=== PATIENT | male | born 1975 | race Caucasian/White ===

== ENCOUNTER 2016-06-21 04:26 | Emergency (ER) | payer SELFPAY ==
[~2016-06-21] VITALS: Ht 172.7 cm; Wt 68.0 kg
[~2016-06-21 04:26] MED LIST: GABA600T PO; METH500T3 PO; OXYC-396 PO; TEMA30CA PO
[2016-06-21 04:29] VITALS: BP 123/82; PULSE 82; RESP 16; TEMP 97.5; O2SAT 98
--- NOTE | 2016-06-21 04:49 | PD ---
HPI Chief Complaint: Injury Time Seen by Provider: 04:46 Travel History International Travel<30 days: No Contact w/Intl Traveler<30days: No Traveled to known affect area: No History of Present Illness HPI 41-year-old white male presents to emergency department for evaluation of right knee pain after an injury last evening. He states that he accidentally walked into a trailer hitch with his right leg. He hyperextended his right knee. He states that he had mild discomfort initially. He had taken his 20 mg oxycodone and went to bed. He states he had woken up several hours later with severe pain in the right knee. He states that he is unable to bend and extend his leg at the knee due to pain. He denies any numbness or tingling. He states that he takes oxycodone 20 mg 3 times daily for chronic neck and back pain. PFSH Past Medical History Narrative Medical Anxiety, depression, history of IV drug abuse, chronic neck and back pain Arthritis: No Asthma: No Autoimmune Disease: No Blood Disorders: No Anxiety: Yes Depression: Yes Heart Rhythm Problems: No Cancer: No Cardiovascular Problems: Yes High Cholesterol: No Chemotherapy: No Chest Pain: Yes Congestive Heart Failure: No COPD: No Cerebrovascular Accident: No Diabetes: No Diminished Hearing: No Endocrine: No Gastrointestinal Disorders: No GERD: No Genitourinary: Yes Headaches: No Hepatitis: Yes (hep c) Hiatal Hernia: No Hypertension: Yes Immune Disorder: No Implanted Vascular Access Dvce: No Kidney Stones: Yes Musculoskeletal: Yes Neurologic: No Psychiatric: Yes Reproductive: No Respiratory: No Integumentary: Yes (cellulitis to Right arm) Immunizations Current: Yes Migraines: No Pneumonia: Yes Radiation Therapy: No Renal Failure: No Seizures: No Sleep Apnea: No Thyroid Disease: No Ulcer: No Tetanus Vaccination: < 5 Years Influenza Vaccination: No Past Surgical History Abdominal Surgery: No Cardiac Surgery: No Ear Surgery: No Endocrine Surgery: No Eye Surgery: No Genitourinary Surgery: No Gynecologic Surgery: No Insulin Pump: No Oral Surgery: No Pacemaker: No Thoracic Surgery: No Other Surgery: Yes (RIGHT HAND INFECTOIN LANCED. ) Social History Alcohol Use: Yes (SELDOM/OCCASIONALLY) Tobacco Use: Yes (1 PPD) Substance Use: Yes (IV drug use, Dilaudid) Allergies-Medications (Allergen,Severity, Reaction): Coded Allergies: *MDRO Multi-Drug Resistant Organism (Unverified Adverse Reaction, Unknown , 06/21/16) MRSA Wound 09/07/14, as well as in 2011 and 2006. Morphine (Unverified Adverse Reaction, Unknown, N/V, 06/21/16) Reported Meds & Prescriptions Reported Meds & Active Scripts Active Reported Oxycodone (Oxycodone HCl) 20 Mg Tab 20 Mg PO Q6H PRN Review of Systems Except as stated in HPI: all other systems reviewed are Neg Physical Exam Narrative GENERAL: This is a well-nourished, well-developed patient, in no apparent distress. SKIN: No rashes, ecchymoses or lesions. Warm and dry. HEAD: Atraumatic. Normocephalic. EYES: PERRL, EOMI, no discharge or injection. No scleral icterus. EARS: Clear NOSE: Nasal turbinates appear normal. THROAT: Mucosa pink and moist. Airway patent. NECK: Trachea midline. supple, moves head freely. LUNGS: Clear to auscultation. CV: Regular in rhythm. ABDOMEN: Soft nontender. EXT: No clubbing cyanosis or edema. Examination of the right lower extremity reveals no obvious joint effusion of the knee. He is able to extend the knee. He states that he has limited flexion due to pain. No medial lateral collateral ligament instability. Unable to assess anterior posterior cruciate due to patient compliance. No pain in the hip, ankle or foot. He has intact gross sensation. Data Data Last Documented VS Vital Signs Date Time Temp Pulse Resp B/P Pulse Ox O2 Delivery O2 Flow Rate FiO2 06/21/16 04:44 16 06/21/16 04:29 97.5 82 123/82 98 Room Air Orders Knee, Complete (4vws) (06/21/16 04:41) Ice/Cold Pack (06/21/16 04:41) Splint Or Brace Apply/Monitor (06/21/16 04:41) Crutches (06/21/16 04:41) Immobilizer Knee 20 Inch (06/21/16 ) Ketorolac Inj (Toradol Inj) (06/21/16 06:30) MDM Medical Decision Making Medical Screen Exam Complete: Yes Emergency Medical Condition: Yes Medical Record Reviewed: Yes Interpretation(s) Last 24 hours Impressions Knee X-Ray 06/21/16 9041 Signed Impressions: Service Date/Time: Tuesday, June 21, 2016 05:59 - CONCLUSION: Unremarkable examination of the right knee. Wild Adam MD Right knee: Negative for acute fracture. No joint effusion. Differential Diagnosis MDM: High Differential diagnoses: Fracture, sprain, strain, dislocation, contusion, neurovascular injury Narrative Course The patient's history and exam is inconsistent with a significant injury. The patient's complaint of pain is disproportionate to his history and clinical findings. The patient has a history of substance abuse per the medical record. He also states that he is prescribed oxycodone 20 mg 3 times daily. He stated that he had taken earlier before coming in. The patient will be given Toradol 60 mg IM and he will be given a knee immobilizer, crutches and ice pack. X-rays were negative for any acute findings. The patient now states that he is allergic to Toradol. He states that he is also allergic to morphine and that the only medicine that he can take her pain is Dilaudid. He is requesting a shot of Dilaudid. I explained to the patient that this type of injury does not require Dilaudid. This is treated with anti- inflammatory medications. The patient is given a copy of his x-ray report. The patient now claims that my exam has exacerbated his injury. He is alleging that I have hyperextended his leg. He is now threatening to bring on a lawsuit because he is not getting Dilaudid and that he alleges that I have intentionally injured him. He is threatening to call the hospital city administrator and report me. He also states that he is going to go directly to [facility]. He states that he's not getting treated properly. I explained to the patient that he is in pain management and that I cannot prescribe any additional narcotics. I have tried to explain to the patient that this type of knee injury does not require shots of Dilaudid and additional opiates on top of his 20 mg of oxycodone 3 times daily. I've tried to explain to him that it is up to his pain management doctor to delegate further pain control. I'm not disputing that the patient has had an injury but is request for narcotics is not indicated. This is right knee sprain Diagnosis Primary Impression: Right knee sprain Qualified Code: S83.91XA - Sprain of right knee, unspecified ligament, initial encounter Patient Instructions: General Instructions Additional Instructions: Rest. Elevation. Ice packs for the next 3 days. Knee immobilizer and crutches. No weight-bearing and then progress to weight-bearing as tolerated. Call your pain doctor for further pain control. 3 Advil every 6 hours. Follow-up with an orthopedist or your doctor in one week. Return to the ER if any problems Med/Other Pt SpecificInfo: No Meds Exist/No RX given Disposition: 01 DISCHARGE HOME Condition: Stable David Reece Jun 21, 2016 04:49
--- NOTE | 2016-06-21 06:16 | RADRPT ---
EXAM DATE/TIME: 06/21/2016 05:59 [facility] COMPARISON: No previous studies available for comparison. INDICATIONS : Right knee pain after hitting knee against trailer hitch. MEDICAL HISTORY : None. SURGICAL HISTORY : None. ENCOUNTER: Initial ACUITY: 1 day PAIN SCORE: 10/10 LOCATION: Right knee FINDINGS: Four view examination of the right knee demonstrates no evidence of fracture or dislocation. Bony mi neralization is normal. The articular surfaces are intact. The suprapatellar soft tissues have a no rmal configuration. CONCLUSION: Unremarkable examination of the right knee. Wild Adam MD on June 21, 2016 at 6:12 Board Certified Radiologist. This report was verified electronically.
[2016-06-21] MEDS ORDERED: KETOROLAC TROMETHAMINE 60 MG/2 ML (IM) VIAL IM ONE (06:30)
== END 2016-06-21 06:53 | disposition home or self-care (01) ==
LOC: NEPB 04:26
DX: S83.91XA Sprain of unspecified site of right knee, initial encounter (principal); W22.09XA Striking against other stationary object, initial encounter; I10 Essential (primary) hypertension
CPT/HCPCS: 73564; 99284; E0113; L1830

== ENCOUNTER 2016-12-11 15:41 | Emergency (ER) | payer SELFPAY ==
[~2016-12-11] VITALS: Ht 175.3 cm; Wt 75.0 kg
[~2016-12-11 15:41] MED LIST changes: -GABA600T PO; -METH500T3 PO; -TEMA30CA PO
[2016-12-11 15:43] VITALS: BP 139/84; PULSE 94; RESP 20; TEMP 97.9; O2SAT 98
--- NOTE | 2016-12-11 15:48 | PD ---
Physical Exam Time Seen by Provider: 15:46 Narrative 41 y/o male with swelling/redness dorsal left hand which he reports was from a palm frond poking him yesterday. he endorses a hx of IDVU over one year ago. Vital signs reviewed. Seen at triage desk. Awaiting bed placement. Data Data Last Documented VS Vital Signs Date Time Temp Pulse Resp B/P Pulse Ox O2 Delivery O2 Flow Rate FiO2 12/11/16 15:43 97.9 94 20 139/84 98 Room Air [facility] Medical Record Reviewed: Yes Supervised Visit with SHAHRIAR: Lm Mejias Dec 11, 2016 15:48
--- NOTE | 2016-12-11 17:52 | PD ---
HPI Chief Complaint: Skin Problem Time Seen by Provider: 17:20 Travel History International Travel<30 days: No Contact w/Intl Traveler<30days: No Traveled to known affect area: No History of Present Illness HPI 41 y/o male with swelling/redness dorsal left hand which he reports was from a palm frond poking him yesterday. He reports the puncture injury was superficial and he does not believe there is something retained. He does report history of IV drug abuse but is adamant he hasn't injected into that hand or anywhere for over one year. He denies fever or chills. He reports pain localized to the hand. No alleviating factors. PFSH Past Medical History Arthritis: No Asthma: No Autoimmune Disease: No Blood Disorders: No Anxiety: Yes Depression: Yes Heart Rhythm Problems: No Cancer: No Cardiovascular Problems: Yes High Cholesterol: No Chemotherapy: No Chest Pain: Yes Congestive Heart Failure: No COPD: No Cerebrovascular Accident: No Diabetes: No Diminished Hearing: No Endocrine: No Gastrointestinal Disorders: No GERD: No Genitourinary: Yes Headaches: No Hepatitis: Yes (hep c) Hiatal Hernia: No Hypertension: Yes Immune Disorder: No Implanted Vascular Access Dvce: No Kidney Stones: Yes Musculoskeletal: Yes Neurologic: No Psychiatric: Yes Reproductive: No Respiratory: No Integumentary: Yes (cellulitis to Right arm) Immunizations Current: Yes Migraines: No Pneumonia: Yes Radiation Therapy: No Renal Failure: No Seizures: No Sleep Apnea: No Thyroid Disease: No Ulcer: No Past Surgical History Abdominal Surgery: No Cardiac Surgery: No Ear Surgery: No Endocrine Surgery: No Eye Surgery: No Genitourinary Surgery: No Gynecologic Surgery: No Insulin Pump: No Oral Surgery: No Pacemaker: No Thoracic Surgery: No Other Surgery: Yes (RIGHT HAND INFECTOIN LANCED. ) Social History Alcohol Use: Yes (SELDOM/OCCASIONALLY) Tobacco Use: Yes (1 PPD) Substance Use: Yes (IV drug use, Dilaudid) Allergies-Medications (Allergen,Severity, Reaction): Coded Allergies: *MDRO Multi-Drug Resistant Organism (Unverified Adverse Reaction, Unknown , 12/11/16) MRSA Wound 09/07/14, as well as in 2011 and 2006. Morphine (Unverified Adverse Reaction, Unknown, N/V, 12/11/16) Reported Meds & Prescriptions Reported Meds & Active Scripts Active Reported Oxycodone (Oxycodone HCl) 20 Mg Tab 20 Mg PO Q6H PRN Review of Systems Except as stated in HPI: all other systems reviewed are Neg General / Constitutional: No: Fever Eyes: No: Visual changes HENT: No: Headaches Cardiovascular: No: Chest Pain or Discomfort Respiratory: No: Shortness of Breath Gastrointestinal: No: Abdominal Pain Genitourinary: No: Dysuria Musculoskeletal: Positive: Other (left hand pain and swelling) Physical Exam Narrative GENERAL: Alert, well-appearing male. No acute distress SKIN: Focused skin assessment warm/dry. Mild erythema and swelling to the left hand dorsal aspect this does not extend into the fingers or wrist. HEAD: Atraumatic. Normocephalic. EYES: Pupils equal and round. No scleral icterus. No injection or drainage. ENT: No nasal bleeding or discharge. Mucous membranes pink and moist. NECK: Trachea midline. No JVD. CARDIOVASCULAR: Regular rate and rhythm. No murmur appreciated. RESPIRATORY: No accessory muscle use. Clear to auscultation. Breath sounds equal bilaterally. GASTROINTESTINAL: Abdomen soft, non-tender, nondistended. Hepatic and splenic margins not palpable. MUSCULOSKELETAL: No obvious deformities. No clubbing. No cyanosis. No edema. Mild erythema and swelling to the left hand dorsal aspect this does not extend into the fingers or wrist. No obvious puncture site. No induration or fluctuance. NEUROLOGICAL: Awake and alert. No obvious cranial nerve deficits. Motor grossly within normal limits. Normal speech. PSYCHIATRIC: Appropriate mood and affect; insight and judgment normal. Data Data Last Documented VS Vital Signs Date Time Temp Pulse Resp B/P Pulse Ox O2 Delivery O2 Flow Rate FiO2 12/11/16 15:43 97.9 94 20 139/84 98 Room Air [facility] Medical Decision Making Medical Screen Exam Complete: Yes Emergency Medical Condition: Yes Differential Diagnosis Cellulitis, abscess, retained foreign body Narrative Course 41-year-old male presents emergency department for evaluation of left hand redness and swelling 1 day. Patient reports he was poked in the hand by a palm frond. He does not believe there is a retained foreign body. He refuses x -ray. Risks of retained foreign body discussed with patient. He verbalizes understanding. Patient is nontoxic-appearing. He is afebrile and non- tachycardic. The cellulitis appears to be localized to the dorsal aspect of the hand it does not extend into the fingers or wrist. I think it's reasonable to attempt oral antibiotics and have close follow-up. Patient agrees to this plan. He will be put on Bactrim and Keflex which are free of [employer]. Patient was instructed to follow-up with his primary care doctor in 1-2 days or return to emergency department for recheck. He agrees. Diagnosis Primary Impression: Cellulitis of left hand Referrals: Primary Care Physician Additional Instructions: Take the antibiotics as prescribed. Follow-up with her primary doctor in 1-2 days for recheck. Return to the emergency department if he developed increasing pain, swelling, redness of the left hand. Scripts Sulfamethoxazole-Trimethoprim (Bactrim DS)800-160 Mg Tab1 Tab PO BID #20 TAB Prov:Carmen Perez 12/11/16 Cephalexin (Keflex)500 Mg [id number] Mg PO Q6H #28 CAP Prov:Carmen Perez 12/11/16 Disposition: 01 DISCHARGE HOME Condition: Stable Carmen Perez Dec 11, 2016 17:52
[2016-12-11] MEDS ORDERED: CEPH-460 PO (17:57)
[2016-12-11] MEDS ORDERED: BACT800T5 PO (17:57)
== END 2016-12-11 19:04 | disposition home or self-care (01) ==
LOC: NEPK 15:41
DX: L03.114 Cellulitis of left upper limb (principal); I10 Essential (primary) hypertension; F41.9 Anxiety disorder, unspecified; F32.9 Major depressive disorder, single episode, unspecified; B19.20 Unspecified viral hepatitis C without hepatic coma; F17.210 Nicotine dependence, cigarettes, uncomplicated; Z79.899 Other long term (current) drug therapy
CPT/HCPCS: 99284

== ENCOUNTER 2017-02-01 14:34 | Emergency (ER) | payer SELFPAY ==
[~2017-02-01] VITALS: Ht 172.7 cm; Wt 64.2 kg
[~2017-02-01 14:34] MED LIST changes: +BACT800T5 PO; +CEPH-460 PO
[2017-02-01 14:40] VITALS: BP 123/71; PULSE 89; RESP 18; TEMP 98.4
[2017-02-01] MEDS ORDERED: GABA600T PO (14:59)
--- NOTE | 2017-02-01 15:12 | PD ---
HPI Chief Complaint: Skin Problem Time Seen by Provider: 14:55 Travel History International Travel<30 days: No Contact w/Intl Traveler<30days: No Traveled to known affect area: No History of Present Illness HPI 41-year-old male presents to the emergency room for evaluation of right hand pain, redness, and swelling for the past 3 days. Patient states he was changing a lawnmower blade cut his hand in several places. States he woke up the following morning with increasing redness and pain in his right hand. He has not done anything for his symptoms. Denies fever, chills, nausea, and vomiting. Patient adamantly denies IV drug use but electronic medical records indicate otherwise. He has history of MRSA. Please see is up-to-date on tetanus. PFSH Past Medical History Arthritis: No Asthma: No Autoimmune Disease: No Blood Disorders: No Anxiety: Yes Depression: Yes Heart Rhythm Problems: No Cancer: No Cardiovascular Problems: Yes High Cholesterol: No Chemotherapy: No Chest Pain: Yes Congestive Heart Failure: No COPD: No Cerebrovascular Accident: No Diabetes: No Diminished Hearing: No Endocrine: No Gastrointestinal Disorders: No GERD: No Genitourinary: Yes Headaches: No Hepatitis: Yes (hep c) Hiatal Hernia: No Hypertension: Yes Immune Disorder: No Implanted Vascular Access Dvce: No Kidney Stones: Yes Musculoskeletal: Yes Neurologic: No Psychiatric: Yes Reproductive: No Respiratory: No Integumentary: Yes (cellulitis to Right arm) Immunizations Current: Yes Migraines: No Pneumonia: Yes Radiation Therapy: No Renal Failure: No Seizures: No Sleep Apnea: No Thyroid Disease: No Ulcer: No Past Surgical History Abdominal Surgery: No Cardiac Surgery: No Ear Surgery: No Endocrine Surgery: No Eye Surgery: No Genitourinary Surgery: No Gynecologic Surgery: No Insulin Pump: No Oral Surgery: No Pacemaker: No Thoracic Surgery: No Other Surgery: Yes (RIGHT HAND INFECTOIN LANCED. ) Social History Alcohol Use: Yes (SELDOM/OCCASIONALLY) Tobacco Use: Yes (1 PPD) Substance Use: Yes (IV drug use, Dilaudid) Allergies-Medications (Allergen,Severity, Reaction): Coded Allergies: *MDRO Multi-Drug Resistant Organism (Unverified Adverse Reaction, Unknown , 02/01/17) MRSA Wound 09/07/14, as well as in 2011 and 2006. morphine (Unverified Adverse Reaction, Unknown, N/V, 02/01/17) Reported Meds & Prescriptions Reported Meds & Active Scripts Active Reported Gabapentin 600 Mg Tab 600 Mg PO BID Review of Systems Except as stated in HPI: all other systems reviewed are Neg Physical Exam Narrative GENERAL: Well-nourished, well-developed male in no acute distress. Afebrile. Ambulatory. SKIN: Focused skin assessment warm/dry. There is an indurated area in the right dorsal hand over the fifth metacarpal which measures about 4 cm in diameter. It is fluctuant but there is no pointing or drainage. There is a zone of inflammation around it but no lymphangitis. HEAD: Normocephalic. EYES: No scleral icterus. No injection or drainage. NECK: Supple, trachea midline. No JVD or lymphadenopathy. CARDIOVASCULAR: Regular rate and rhythm without murmurs, gallops, or rubs. RESPIRATORY: Breath sounds equal bilaterally. No accessory muscle use. MUSCULOSKELETAL: No cyanosis. Moderate to severe edema of the right hand especially over the fifth metacarpal. Full range of motion. Less than 2 second capillary refill distally. Moderate tenderness to palpation over the area of abscess. Data Data Last Documented VS Vital Signs Date Time Temp Pulse Resp B/P (MAP) Pulse Ox O2 Delivery O2 Flow Rate FiO2 02/01/17 14:40 98.4 89 18 123/71 (88) Orders Orders Ibuprofen (Motrin) (02/01/17 15:15) Lidocaine 1% Inj (50 Ml) (Xylocaine 1% I (02/01/17 15:15) Wound Culture And Gram Stain (02/01/17 15:02) Acetamin-Hydrocod 325-5 Mg ([place] 5-325 (02/01/17 15:15) MDM Medical Decision Making Medical Screen Exam Complete: Yes Emergency Medical Condition: Yes Medical Record Reviewed: Yes Differential Diagnosis IV drug abuse, abscess, cellulitis Narrative Course 41-year-old male presents to the emergency room for evaluation of an abscess to his right hand that started 4 days ago. Abscess is located in the right dorsal hand over the fifth metacarpal bone. It is extremely tender to palpation and edematous. No lymphangitis. There is moderate fluctuance. Patient adamantly denies IV drug abuse but it is in his history. There are no surrounding wounds near the abscess to account for cellulitis. Patient persistently asks for Percocet while in the emergency room. He was offered ibuprofen and declines stating ibuprofen would not treat his pain. Patient became cantankerous when he was denied pain medication. He stated he would be leaving and going to another hospital because we were not treating his pain. Pain medication was ordered but patient left prior to administration. Patient left AGAINST MEDICAL ADVICE. AMA: The risks of leaving against medical advice without further evaluation treatment were discussed with the patient. These risks include cardiac dysfunction, cardiac dysrhythmia, possible heart attack, possible stroke or . The patient indicated understanding of these risks and appeared to have the capacity to make this decision. Diagnosis Primary Impression: Abscess Referrals: Primary Care Physician Med/Other Pt SpecificInfo: Prescription(s) given Disposition: 07 AGAINST MEDICAL ADVICE Condition: Stable Dee Palomino Feb 01, 2017 15:12
[2017-02-01] MEDS ORDERED: IBUPROFEN 800 MG TAB PO ONE (15:15)
[2017-02-01] MEDS ORDERED: LIDOCAINE HCL 1% 50 ML VIAL INFIL ONE (15:15)
[2017-02-01] MEDS ORDERED: ACETAMINOPHEN/HYDROcodone 325 MG/5 MG TAB PO ONE (15:15)
== END 2017-02-01 15:30 | disposition left against medical advice (07) ==
LOC: PHEFT 14:34
DX: L02.511 Cutaneous abscess of right hand (principal)
CPT/HCPCS: 99281

== ENCOUNTER 2017-02-20 07:44 | Emergency (ER) | payer SELFPAY ==
[~2017-02-20] VITALS: Ht 172.7 cm; Wt 75.0 kg
[~2017-02-20 07:44] MED LIST changes: -BACT800T5 PO; -CEPH-460 PO; +GABA600T PO; -OXYC-396 PO
[2017-02-20 07:52] VITALS: BP 144/91; PULSE 83; RESP 16; TEMP 98.6; O2SAT 99
[2017-02-20 08:05] VITALS: BP 140/81; PULSE 74; RESP 24; O2SAT 98
[2017-02-20] MEDS ORDERED: VANCOMYCIN INJ 1,000 MG in SODIUM CHLOR 0.9% 250 ML INJ 250 ML IV STA (08:16)
[2017-02-20] MEDS ORDERED: PIPERACIL-TAZO 4.5 GM PREMIX 100 ML IV STA (08:16)
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
[2017-02-20] MEDS ORDERED: KETOROLAC TROMETHAMINE 30 MG/ML (IVP) VIAL IV PUSH ONE (08:30)
[2017-02-20 08:45] LABS: AUTOMATED NEUTROPHIL # 5.8 TH/MM3 (1.8-7.7); BASOPHIL % 0.4 % (0.0-2.0); EOSINOPHIL # 0.1 TH/MM3 (0-0.4); EOSINOPHIL % 0.9 % (0.0-4.0); HEMATOCRIT 43.4 % (39.0-51.0); HEMO FLAGS DIFF FINAL; LYMPH % 26.2 % (9.0-44.0); LYMPHOCYTE # 2.7 TH/MM3 (1.0-4.8); MEAN CELL VOLUME 91.2 FL (80.0-100.0); MONO % 16.1 % (0.0-8.0); NEUT % 56.4 % (16.0-70.0); PLATELET COUNT 189 TH/MM3 (150-450); RED BLOOD COUNT 4.76 MIL/MM3 (4.50-5.90); RED CELL DISTRIBUTION WIDTH 14.7 % (11.6-17.2); WHITE BLOOD COUNT 10.3 TH/MM3 (4.0-11.0)
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
--- NOTE | 2017-02-20 09:09 | RADRPT ---
EXAM DATE/TIME: 02/20/2017 08:49 [facility] COMPARISON: CHEST SINGLE AP, September 05, 2014, 17:10. INDICATIONS : Cough. Patient also complains of left arm pain after being stuck by yard debris. MEDICAL HISTORY : Hypertension. Hepatitis C. SURGICAL HISTORY : None. ENCOUNTER: Initial ACUITY: 2 days PAIN SCORE: 6/10 LOCATION: Bilateral chest FINDINGS: A single view of the chest demonstrates the lungs to be symmetrically aerated without evidence of mas s, infiltrate or effusion. The cardiomediastinal contours are unremarkable. Osseous structures are intact. CONCLUSION: No acute disease. Oral Valenzuela MD on February 20, 2017 at 9:08 Board Certified Radiologist. This report was verified electronically.
[2017-02-20 09:13] LABS: ALT (GPT) 115 U/L (12-78)
[2017-02-20 09:14] LABS: ALKALINE PHOSPHATASE 123 U/L (45-117); TOTAL BILIRUBIN ADULT 0.6 MG/DL (0.2-1.0)
[2017-02-20 09:17] LABS: ANION GAP 5 MEQ/L (5-15); AST (GOT) 116 U/L (15-37); BICARBONATE 26.2 MEQ/L (21.0-32.0); BLOOD UREA NITROGEN 8 MG/DL (7-18); CHLORIDE 105 MEQ/L (98-107); GLOMERULAR FILTRATION RATE 100 ML/MIN (>89); POTASSIUM 4.3 MEQ/L (3.5-5.1); SODIUM (NA) 136 MEQ/L (136-145)
[2017-02-20] MEDS ORDERED: BACT800T5 PO (10:14)
[2017-02-20] MEDS ORDERED: CLIN1CAP6 PO (10:14)
[2017-02-21] MEDS ORDERED: OXYC-396 PO (08:01)
== END 2017-02-20 10:39 | disposition left against medical advice (07) ==
LOC: NEPC 07:44
DX: I82.612 Acute embolism and thrombosis of superficial veins of left upper extremity (principal); F41.9 Anxiety disorder, unspecified; F32.9 Major depressive disorder, single episode, unspecified; K75.9 Inflammatory liver disease, unspecified; I10 Essential (primary) hypertension; F17.200 Nicotine dependence, unspecified, uncomplicated; Z87.442 Personal history of urinary calculi; Z79.899 Other long term (current) drug therapy
CPT/HCPCS: 71010; 76882; 80053; 83605; 85025; 87040; 96365; 96375; 99285; J1885; J2543; J3370; J7050

== ENCOUNTER 2017-02-21 07:43 | Emergency (ER) | payer SELFPAY ==
[~2017-02-21] VITALS: Ht 175.3 cm; Wt 72.7 kg
[~2017-02-21 07:43] MED LIST changes: +BACT800T5 PO; +CLIN1CAP6 PO
[2017-02-21 07:45] VITALS: BP 142/86; PULSE 92; RESP 24; TEMP 97.7; O2SAT 98
[2017-02-21 07:55] VITALS: BP 131/81; PULSE 80; RESP 20; O2SAT 98
[2017-02-21] MEDS ORDERED: OXYC-396 PO (08:01)
[2017-02-21] MEDS ORDERED: DALBAVANCIN INJ 1,500 MG in DEXTROSE 5% IN WATE 500 ML INJ 500 ML IV STA ×2 (08:06)
--- NOTE | 2017-02-21 08:12 | PD ---
HPI Chief Complaint: Respiratory Symptoms Time Seen by Provider: 07:53 Travel History International Travel<30 days: No Contact w/Intl Traveler<30days: No Traveled to known affect area: No History of Present Illness HPI So 41-year-old man who presents to the emergency department complaining of chest pain and left arm swelling. States he feels the pain on the right long in the right side of his chest. Started this morning. He seen in the emergency department yesterday for pain and swelling of the left biceps was diagnosed as septic thrombophlebitis. Ultrasound that showed superficial clot. Denies any past medical history except for chronic opiate use for chronic back pain. 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 He had some subjective fevers and chills as well. History Past Medical History Narrative Medical Chronic back pain Tetanus Vaccination: > 5 Years Social History Alcohol Use: Yes (SELDOM/OCCASIONALLY) Tobacco Use: Yes (1 PPD) Allergies-Medications (Allergen,Severity, Reaction): Coded Allergies: *MDRO Multi-Drug Resistant Organism (Unverified Adverse Reaction, Unknown , 02/20/17) MRSA Wound 09/07/14, as well as in 2011 and 2006. morphine (Unverified Adverse Reaction, Unknown, N/V, 02/20/17) Reported Meds & Prescriptions Reported Meds & Active Scripts Active Bactrim DS (Sulfamethoxazole-Trimethoprim) 800-160 Mg Tab 1 Tab PO BID Reported Oxycodone (Oxycodone HCl) 20 Mg Tab 20 Mg PO Q6H PRN Gabapentin 600 Mg Tab 600 Mg PO BID Review of Systems Except as stated in HPI: all other systems reviewed are Neg Physical Exam Narrative GENERAL: Well-appearing 41 year-old woman, no acute distress. SKIN: Focused skin assessment warm/dry. HEAD: Atraumatic. Normocephalic. EYES: Pupils equal and round. No scleral icterus. No injection or drainage. ENT: No nasal bleeding or discharge. Mucous membranes pink and moist. NECK: Trachea midline. No JVD. CARDIOVASCULAR: Regular rate and rhythm. No murmur appreciated. RESPIRATORY: No accessory muscle use. Clear to auscultation. Breath sounds equal bilaterally. GASTROINTESTINAL: Abdomen soft, non-tender, nondistended. Hepatic and splenic margins not palpable. MUSCULOSKELETAL: No obvious deformities. Erythema and induration in the left anterior bicep. No obvious fluctuance. Some tenderness. NEUROLOGICAL: Awake and alert. No obvious cranial nerve deficits. Motor grossly within normal limits. Normal speech. Data Data Last Documented VS Vital Signs Date Time Temp Pulse Resp B/P (MAP) Pulse Ox O2 Delivery O2 Flow Rate FiO2 02/21/17 07:55 80 20 131/81 (98) 98 Room Air 02/21/17 07:45 97.7 Orders Orders Electrocardiogram (02/21/17 ) Complete Blood Count With Diff (02/21/17 08:04) Comprehensive Metabolic Panel (02/21/17 08:04) Iv Access Insert/Monitor (02/21/17 08:04) Ct Pulmonary Angiogram (02/21/17 ) Sodium Chlor 0.9% 1000 Ml Inj (Ns 1000 M (02/21/17 08:15) Case Management Consult (02/21/17 ) Asp:No Reaction To [place]/Vanc (Asp Crit (02/21/17 08:15) Asp: Does Not Meet Inpt Admit (Asp Crit: (02/21/17 08:15) Asp: Iv Antibiotics Admit Only (Asp Crit (02/21/17 08:15) Asp: Location Of [facility] Admin (Asp Crit: (02/21/17 08:15) [facility] [place] (02/21/17 08:15) [place]in Inj ([facility] Inj) (02/21/17 08:06) Iohexol 350 Inj (Omnipaque 350 Inj) (02/21/17 08:46) Labs Laboratory Tests Test 02/21/17 08:00 White Blood Count 9.3 TH/MM3 Red Blood Count 4.53 MIL/MM3 Hemoglobin 13.8 GM/DL Hematocrit 41.0 % Mean Corpuscular Volume 90.5 FL Mean Corpuscular Hemoglobin 30.5 PG Mean Corpuscular Hemoglobin Concent 33.7 % Red Cell Distribution Width 14.9 % Platelet Count 170 TH/MM3 Mean Platelet Volume 7.9 FL Neutrophils (%) (Auto) 64.6 % Lymphocytes (%) (Auto) 22.7 % Monocytes (%) (Auto) 11.2 % Eosinophils (%) (Auto) 1.2 % Basophils (%) (Auto) 0.3 % Neutrophils # (Auto) 6.0 TH/MM3 Lymphocytes # (Auto) 2.1 TH/MM3 Monocytes # (Auto) 1.0 TH/MM3 Eosinophils # (Auto) 0.1 TH/MM3 Basophils # (Auto) 0.0 TH/MM3 CBC Comment DIFF FINAL Differential Comment Blood Urea Nitrogen 7 MG/DL Creatinine 0.99 MG/DL Random Glucose 114 MG/DL Total Protein 8.1 GM/DL Albumin 3.1 GM/DL Calcium Level 8.2 MG/DL Alkaline Phosphatase 102 U/L Aspartate Amino Transf (AST/SGOT) 75 U/L Alanine Aminotransferase (ALT/SGPT) 90 U/L Total Bilirubin 0.5 MG/DL Sodium Level 134 MEQ/L Potassium Level 3.4 MEQ/L Chloride Level 102 MEQ/L Carbon Dioxide Level 25.0 MEQ/L Anion Gap 7 MEQ/L Estimat Glomerular Filtration Rate 84 ML/MIN [facility] Medical Decision Making Medical Screen Exam Complete: Yes Emergency Medical Condition: Yes Interpretation(s) My review of EKG: Normal sinus rhythm at a rate of 87, normal axis, normal intervals, no acute ischemia. LABS: CBC is unremarkable. BMP is overall unremarkable with mildly elevated AST and ALT CT pulmonary angiogram: No PE. Differential Diagnosis Infection, PE, bronchitis, other Narrative Course Medical decision making 41-year-old man with left arm soft tissue infection thrombophlebitis who presents with chest pain. This is likely from bronchitis. Concern for PE. We' ll check labs, CT, IV antibiotics. Patient appears high risk for medication noncompliance. He has filled the Bactrim but has not filled the clindamycin. They're planning on admitting him yesterday according to the patient. I think patient be good candidate for [facility]. Diagnosis Primary Impression: Cellulitis Additional Instructions: Continue to avoid IV drug use. Follow-up with her primary doctor not completely well in 3-4 days. Return to the emergency department for any new or worsening symptoms. You can stop the Bactrim and the clindamycin. Med/Other Pt SpecificInfo: Existing Med Changed Disposition: 01 DISCHARGE HOME Condition: Stable Antoni Pyle MD Feb 21, 2017 08:12
[2017-02-21] MEDS ORDERED: ASP: Only reason for admit - IV antibiotics OTHER ONE (08:15)
[2017-02-21] MEDS ORDERED: SODIUM CHLOR 0.9% 1000 ML INJ 1,000 ML IV ONE (08:15)
[2017-02-21] MEDS ORDERED: ASP: Location of Dalbavancin administration OTHER ONE (08:15)
[2017-02-21] MEDS ORDERED: ASP: No known hypersensitivity to Vanco, Telavancin, Dalbavancin OTHER ONE (08:15)
[2017-02-21] MEDS ORDERED: MISCELLANEOUS PHARMACY INFORMATION XX ONE (08:15)
[2017-02-21] MEDS ORDERED: ASP: Does not meet inpatient admission criteria OTHER ONE (08:15)
[2017-02-21 08:21] LABS: BASOPHIL % 0.3 % (0.0-2.0); EOSINOPHIL # 0.1 TH/MM3 (0-0.4); EOSINOPHIL % 1.2 % (0.0-4.0); HEMO FLAGS DIFF FINAL; LYMPH % 22.7 % (9.0-44.0); LYMPHOCYTE # 2.1 TH/MM3 (1.0-4.8); MEAN CELL VOLUME 90.5 FL (80.0-100.0); MEAN CORPUSCULAR HEMOGLOBIN 30.5 PG (27.0-34.0); MEAN CORPUSCULAR HGB CONC 33.7 % (32.0-36.0); MONO % 11.2 % (0.0-8.0); NEUT % 64.6 % (16.0-70.0); PLATELET COUNT 170 TH/MM3 (150-450); RED BLOOD COUNT 4.53 MIL/MM3 (4.50-5.90); RED CELL DISTRIBUTION WIDTH 14.9 % (11.6-17.2); WHITE BLOOD COUNT 9.3 TH/MM3 (4.0-11.0)
[2017-02-21] MEDS ORDERED: IOHEXOL 350 MG/ML 10 ML VIAL (for RAD DIAG) IVCONTRAST ONE (08:46)
[2017-02-21 08:59] LABS: ALKALINE PHOSPHATASE 102 U/L (45-117); ALT (GPT) 90 U/L (12-78); ANION GAP 7 MEQ/L (5-15); AST (GOT) 75 U/L (15-37); BLOOD UREA NITROGEN 7 MG/DL (7-18); CHLORIDE 102 MEQ/L (98-107); GLOMERULAR FILTRATION RATE 84 ML/MIN (>89); POTASSIUM 3.4 MEQ/L (3.5-5.1); SODIUM (NA) 134 MEQ/L (136-145); TOTAL BILIRUBIN ADULT 0.5 MG/DL (0.2-1.0)
--- NOTE | 2017-02-21 09:05 | RADRPT ---
EXAM DATE/TIME: 02/21/2017 08:33 [facility] COMPARISON: CHEST SINGLE AP, February 20, 2017, 8:49. INDICATIONS : Right lower chest pain with shortness of breath. IV CONTRAST: 60 cc Omnipaque 350 (iohexol) IV RADIATION DOSE: 10.92 CTDIvol (mGy) MEDICAL HISTORY : None SURGICAL HISTORY : None. ENCOUNTER: Initial ACUITY: 2 days PAIN SCALE: 5/10 LOCATION: Right chest TECHNIQUE: Volumetric scanning of the chest was performed using a pulmonary embolism protocol MIP images were re constructed. Using automated exposure control and adjustment of the mA and/or kV according to patien t size, radiation dose was kept as low as reasonably achievable to obtain optimal diagnostic quality images. DICOM format image data is available electronically for review and comparison. Follow-up recommendations for detected pulmonary nodules are based at a minimum on nodule size and pa tient risk factors according to Fleischner Society Guidelines. FINDINGS: PULMONARY ARTERIES: No filling defects are seen in the pulmonary arteries through the segmental level. LUNGS: Biapical emphysematous changes, right left. No confluent infiltrate. PLEURAE: There is no pleural thickening or pleural effusion. MEDIASTINUM: There is good visualization of the great vessels of the middle mediastinum. No evidence of mediastin al or hilar adenopathy/mass. Anatomic variant of the arch with the left vertebral emanated directly f rom the arch. MUSCULOSKELETAL: Within normal limits for patient age. MISCELLANEOUS: The visualized upper abdominal organs demonstrate no acute abnormality. Spleen is prominent measuring 14.4 cm in greatest AP dimension CONCLUSION: 1. Biapical emphysematous changes, right greater than left. 2. No confluent infiltrate or pulmonary embolus. 3. Splenomegaly. Mervin Herrera MD on February 21, 2017 at 9:00 Board Certified Radiologist. This report was verified electronically.
[2017-02-21 10:32] VITALS: BP 130/80
--- NOTE | 2017-02-21 20:40 | EKG ---
Date Performed: 02/21/2017 Time Performed: 08:00:58 PTAGE: 41 years EKG: Sinus rhythm POSSIBLE LEFT ATRIAL ENLARGEMENT BORDERLINE ECG PREVIOUS TRACING : 02/21/2017 08.00 Compared to prior tracing no significant change DOCTOR: Jovan Hilario Interpretating Date/Time 02/22/2017 09:25:21
== END 2017-02-21 11:14 | disposition home or self-care (01) ==
LOC: NEPE 07:43
DX: L03.90 Cellulitis, unspecified (principal); I80.8 Phlebitis and thrombophlebitis of other sites; M79.89 Other specified soft tissue disorders; F17.200 Nicotine dependence, unspecified, uncomplicated
CPT/HCPCS: 71275; 80053; 85025; 93005; 96361; 96365; 99285; J0875; J7030; J7060; Q9967

== ENCOUNTER 2017-06-11 08:18 | Emergency (ER) | payer OTHER ==
[~2017-06-11] VITALS: Ht 172.7 cm; Wt 70.0 kg
[~2017-06-11 08:18] MED LIST changes: -CLIN1CAP6 PO; +OXYC-396 PO
[2017-06-11 08:32] VITALS: BP 132/88; PULSE 88; RESP 16; TEMP 99.9; O2SAT 98
[2017-06-11 09:37] LABS: AUTOMATED NEUTROPHIL # 4.1 TH/MM3 (1.8-7.7); BASOPHIL % 0.3 % (0.0-2.0); EOSINOPHIL # 0.1 TH/MM3 (0-0.4); EOSINOPHIL % 1.2 % (0.0-4.0); HEMATOCRIT 41.1 % (39.0-51.0); HEMOGLOBIN 14.4 GM/DL (13.0-17.0); LYMPH % 35.6 % (9.0-44.0); MEAN CELL VOLUME 87.9 FL (80.0-100.0); MEAN CORPUSCULAR HEMOGLOBIN 30.8 PG (27.0-34.0); MEAN PLATELET VOLUME 8.1 FL (7.0-11.0); MONO % 14.9 % (0.0-8.0); MONOCYTE # 1.3 TH/MM3 (0-0.9); PLATELET COUNT 186 TH/MM3 (150-450); RED BLOOD COUNT 4.67 MIL/MM3 (4.50-5.90); RED CELL DISTRIBUTION WIDTH 14.3 % (11.6-17.2); WHITE BLOOD COUNT 8.5 TH/MM3 (4.0-11.0)
[2017-06-11 09:40] LABS: BILIRUBIN, URINE NEG (NEG); BLOOD, URINE NEG (NEG); GLUCOSE,URINE NEG (NEG); KETONE, URINE 40 mg/dL (NEG); NITRITE,URINE NEG (NEG); PH, URINE 6.5 (5.0-8.5); URINE COLOR YELLOW (YELLW/STRAW); URINE LEUKOCYTE ESTERASE NEG (NEG)
[2017-06-11 09:51] LABS: ALBUMIN 3.5 GM/DL (3.4-5.0); ALT (GPT) 100 U/L (12-78); AST (GOT) 155 U/L (15-37); BICARBONATE 24.7 MEQ/L (21.0-32.0); BLOOD UREA NITROGEN 16 MG/DL (7-18); CHLORIDE 102 MEQ/L (98-107); CREATININE 0.93 MG/DL (0.60-1.30); GLOMERULAR FILTRATION RATE 90 ML/MIN (>89); GLUCOSE,RANDOM 58 MG/DL (74-106); SODIUM (NA) 136 MEQ/L (136-145)
[2017-06-11 09:53] LABS: ALKALINE PHOSPHATASE 123 U/L (45-117); TOTAL BILIRUBIN ADULT 1.3 MG/DL (0.2-1.0); TOTAL PROTEIN 8.1 GM/DL (6.4-8.2)
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
[2017-06-11 12:20] VITALS: BP 145/87; O2SAT 98
[2017-06-11 12:32] VITALS: TEMP 97.8
[2017-06-11 16:10] VITALS: BP 135/80; O2SAT 98
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
== END 2017-06-11 18:33 | disposition home or self-care (01) ==
LOC: NEPD 08:18
DX: F31.9 Bipolar disorder, unspecified (principal); M47.9 Spondylosis, unspecified; F19.10 Other psychoactive substance abuse, uncomplicated; F41.9 Anxiety disorder, unspecified; I10 Essential (primary) hypertension; F17.200 Nicotine dependence, unspecified, uncomplicated; Z86.19 Personal history of other infectious and parasitic diseases; Z87.442 Personal history of urinary calculi; Z59.0 Homelessness
CPT/HCPCS: 72131; 80053; 80307; 81001; 85025; 99285

== ENCOUNTER 2017-11-07 11:39 | Emergency (ER) | payer SELFPAY ==
[~2017-11-07] VITALS: Ht 172.7 cm; Wt 64.0 kg
[2017-11-07 11:41] VITALS: BP 131/83; PULSE 89; RESP 16; TEMP 97.7; O2SAT 97
[2017-11-07] MEDS ORDERED: CLIN300C5 PO (11:54)
--- NOTE | 2017-11-07 11:57 | PD ---
HPI . Facial swelling Chief Complaint: Oral / Dental Pain or Problem Time Seen by Provider: 11:51 Travel History International Travel<30 days: No Contact w/Intl Traveler<30days: No Traveled to known affect area: No History of Present Illness HPI Patient presents with a chief complaint of swelling of his left cheek. Onset yesterday. Getting progressively worse. Pain rated 9/10. No modifying factors. No associated fever. He has not called or seeing a dentist. PFSH Past Medical History Arthritis: No Asthma: No Autoimmune Disease: No Blood Disorders: No Anxiety: Yes Depression: Yes Heart Rhythm Problems: No Cancer: No Cardiovascular Problems: Yes High Cholesterol: No Chemotherapy: No Chest Pain: Yes Congestive Heart Failure: No COPD: No Cerebrovascular Accident: No Diabetes: No Diminished Hearing: No Endocrine: No Gastrointestinal Disorders: No GERD: No Genitourinary: Yes Headaches: No Hepatitis: Yes (HEP c) Hiatal Hernia: No Hypertension: Yes Immune Disorder: No Implanted Vascular Access Dvce: No Kidney Stones: Yes Musculoskeletal: Yes Neurologic: No Psychiatric: Yes Reproductive: No Respiratory: No Integumentary: Yes (cellulitis to Right arm) Immunizations Current: Yes Migraines: No Pneumonia: Yes Radiation Therapy: No Renal Failure: No Seizures: No Sleep Apnea: No Thyroid Disease: No Ulcer: No Past Surgical History Abdominal Surgery: No Cardiac Surgery: No Ear Surgery: No Endocrine Surgery: No Eye Surgery: No Genitourinary Surgery: No Gynecologic Surgery: No Insulin Pump: No Oral Surgery: No Pacemaker: No Thoracic Surgery: No Other Surgery: Yes (RIGHT HAND INFECTION LANCED. ) Social History Alcohol Use: Yes (SELDOM/OCCASIONALLY) Tobacco Use: Yes (1 PPD) Substance Use: Yes Allergies-Medications (Allergen,Severity, Reaction): Coded Allergies: *MDRO Multi-Drug Resistant Organism (Unverified Adverse Reaction, Unknown , 06/11/17) MRSA Wound 09/07/14, as well as in 2011 and 2006. morphine (Unverified Adverse Reaction, Unknown, N/V, 06/11/17) Reported Meds & Prescriptions Reported Meds & Active Scripts Active Clindamycin (Clindamycin HCl) 300 Mg Cap 600 Mg PO Q8H 7 Days Review of Systems Except as stated in HPI: all other systems reviewed are Neg Physical Exam Narrative GENERAL: Awake and alert and in no acute distress. SKIN: Warm and dry. Normal color and turgor. HEAD: Normocephalic/atraumatic. EYES: Pupils are equal. Extraocular movements are intact. ENT: Swelling of the left cheek. His left maxillary first bicuspid is right into the gumline. There is associated tenderness to percussion. The gingiva is not edematous or erythematous. NECK: Normal range of motion. Supple. No cervical lymphadenopathy. CARDIOVASCULAR: Regular rate and rhythm. RESPIRATORY: Nonlabored respirations. Normal sats. MUSCULOSKELETAL: Atraumatic. Normal muscle tone. NEUROLOGICAL: A and O 3. Nonfocal. PSYCHIATRIC: Appropriate mood and affect. Data Data Last Documented VS Vital Signs Date Time Temp Pulse Resp B/P (MAP) Pulse Ox O2 Delivery O2 Flow Rate FiO2 11/07/17 11:41 97.7 89 16 131/83 (99) 97 Orders Orders Ed Discharge Order (11/07/17 11:54) MDM Medical Decision Making Medical Screen Exam Complete: Yes Emergency Medical Condition: Yes Differential Diagnosis Differential diagnosis of a toothache includes but is not limited to dental caries, dental abscess, gingivitis, drug-seeking behavior. Narrative Course Patient presents with dental pain associated with left cheek swelling. He has a left maxillary tooth which is rotten down to the gumline. He has associated tenderness to percussion. He will be discharged home with a prescription for clindamycin and with instructions to take an [id number] analgesic as needed for pain. I have also suggested ice and Orajel. He needs to follow-up with a dentist. Diagnosis Primary Impression: Dental abscess Patient Instructions: General Instructions Departure Forms: Tests/Procedures Additional Instructions: Tylenol, ibuprofen or naproxen as needed for pain. Orajel also as needed for pain. Ice to your face as needed for pain and swelling. Antibiotics as directed. You will need to follow-up with a dentist. Scripts Clindamycin (Clindamycin) 300 Mg Cap 600 MG PO Q8H for Infection for 7 Days, #42 CAP 0 Refills Prov: Nae Rodrigues MD 11/07/17 Disposition: 01 DISCHARGE HOME Condition: Stable Nae Rodrigues MD Nov 07, 2017 11:57
== END 2017-11-07 12:31 | disposition home or self-care (01) ==
LOC: PHEFT 11:39
DX: K04.7 Periapical abscess without sinus (principal); F41.9 Anxiety disorder, unspecified; F32.9 Major depressive disorder, single episode, unspecified; B19.20 Unspecified viral hepatitis C without hepatic coma; I10 Essential (primary) hypertension; F17.200 Nicotine dependence, unspecified, uncomplicated
CPT/HCPCS: 99283

== ENCOUNTER 2018-01-06 23:42 | Inpatient (IN) ==
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
[2018-01-07 03:29] LABS: Baso # (Auto) 0.1 th/mm3 (0.0-0.2); Eos # (Auto) 0.2 th/mm3 (0.0-0.4); Eos % (Auto) 1.8 % (0.0-4.0); Hematocrit 39.2 % (39.0-51.0); Hemoglobin 13.2 gm/dL (13.0-17.0); Lymph # (Auto) 2.2 th/mm3 (1.0-4.8); Lymph % (Auto) 24.5 % (9.0-44.0); Mean Corpuscular HGB Conc 33.8 % (32.0-36.0); Mean Corpuscular Hemoglobin 29.5 pg (27.0-34.0); Mean Corpuscular Volume 87.5 fL (80.0-100.0); Mean Platelet Volume 7.7 fL (7.0-11.0); Mono # (Auto) 1.1 th/mm3 (0.0-0.9); Mono % (Auto) 11.9 % (0.0-8.0); Neut # (Auto) 5.6 th/mm3 (1.8-7.7); Neut % (Auto) 60.8 % (16.0-70.0); Platelet Count 192 th/mm3 (150-450); Red Blood Count 4.48 mil/mm3 (4.50-5.90); Red Cell Distribution Width 13.6 % (11.6-17.2); White Blood Count 9.2 th/mm3 (4.0-11.0)
[2018-01-07 03:37] LABS: Chloride 100 meq/L (98-107); Potassium 3.5 meq/L (3.5-5.1); Sodium 134 meq/L (136-145)
[2018-01-07 03:40] LABS: Calcium 8.2 mg/dL (8.5-10.1)
[2018-01-07 03:41] LABS: Albumin 3.1 g/dL (3.4-5.0); Anion Gap 6 meq/L (5-15); Blood Urea Nitrogen 11 mg/dL (7-18); Glucose,Random 86 mg/dL (74-106)
[2018-01-07 03:44] LABS: Alanine Aminotransferase 51 U/L (12-78); Aspartate Aminotransferase 68 U/L (15-37); Glomerular Filtration Rate Greater Than 89 mL/min (>89)
[2018-01-07 03:46] LABS: Total Protein 7.5 g/dL (6.4-8.2)
[2018-01-07 03:47] LABS: Alkaline Phosphatase 109 U/L (45-117)
--- NOTE | 2018-01-07 04:24 | US ---
EXAM DATE: 01/07/2018 4:08 AM EDT AGE/SEX: 42 years / Male INDICATIONS: Left arm swelling. CLINICAL DATA: This is the patient's initial encounter. Patient reports that signs and symptoms have been present for 2 days and indicates a pain score of 6/10. MEDICAL/SURGICAL HISTORY: . Back injury. None. COMPARISON: [facility] – [place], US ARM LEFT, 02/20/2017. . FINDINGS: The vessels are compressible and augmentation response is documented. The left basilic vei n in the antecubital region demonstrates an intraluminal filling defect which has the appearance of a n intraluminal foreign body. It is uncertain if this represents a remote nonocclusive thrombus versus intravascular foreign body. No evidence of abscess.. The flow is phasic with respiration. Other: None. CONCLUSION: 1. No evidence for acute thrombus. 2. Within the basilic vein in the antecubital region, and intravascular filling defect is noted whic h does not have the typical appearance of an acute thrombus. Either a foreign body versus chronic non occlusive thrombus are differential diagnostic considerations. There does appear to be some surroundi ng edema but no definite evidence for abscess. Electronically signed by: Ghassan Campoverde MD 01/07/2018 4:23 AM EDT
--- NOTE | 2018-01-07 04:26 | ED ---
HPI General Chief complaint: Skin/Abscess/Foreign Body Stated complaint: Left elbow swelling Time Seen by Provider: 01/07/18 01:35 Source: patient Mode of arrival: ambulatory Limitations: no limitations History of Present Illness HPI narrative: 42-year-old male complaining of pain swelling medial aspect left elbow. Patient states that his symptoms started yesterday and get worse today. Patient states the pain is sharp severe pain localized to the medial aspect the left elbow. Patient denies any pain radiation. Patient states the pain is worse with movement of the left elbow joint. Patient denies any fever chills. Patient denies any direct injury to the area. Patient denies any history IV drug abuse. On a scale of 1-10 the pain is a 10. Onset (ago): day(s) Tetanus Immunization: <5 Years Location: LUE Severity: moderate Severity scale (1-10): 7 Quality: sharp and constant Pain Consistency: constant Relieving factors: none Exacerbating factors: movement Context: none Associated symptoms: denies other symptoms Treatments prior to arrival: none Related Data Home Medications Medication Instructions Recorded Confirmed gabapentin 800 mg PO TID 01/07/18 01/07/18 Allergies Allergy/AdvReac Type Severity Reaction Status Date / Time morphine AdvReac Unknown N/V Verified 01/07/18 00:41 *MDRO Multi-Drug Resistant AdvReac Unknown Abdominal Uncoded 01/07/18 00:41 Organism Pain Review of Systems Except as stated in HPI: all other systems reviewed are negative [facility] Medical History Medical History History of back injury (Acute) Social History Social History Substance History: No History of Abuse Smoking Status: Current every day smoker Tobacco Type: Cigarettes How Often Do You Have a Drink Containing Alcohol: Never Recent Travel in [place] within the Last 8 Weeks: No Recent Out of Country Travel within the Last 8 Weeks: No Immunization History Tetanus Immunization: <5 Years Hx Influenza Vaccine This Season: No Exam Narrative Exam Narrative: GENERAL: Well-nourished, well-developed patient. SKIN: Focused skin assessment warm/dry. HEAD: Normocephalic. EYES: No scleral icterus. No injection or drainage. NECK: Supple, trachea midline. No JVD or lymphadenopathy. CARDIOVASCULAR: Regular rate and rhythm without murmurs, gallops, or rubs. RESPIRATORY: Breath sounds equal bilaterally. No accessory muscle use. GASTROINTESTINAL: Abdomen soft, non-tender, nondistended. MUSCULOSKELETAL: No cyanosis, or edema. BACK: Nontender without obvious deformity. No CVA tenderness. Soft tissue swelling tenderness with increase in heat medial aspect of the left elbow over the medial epicondyles area. Limited range of motion of left elbow secondary to pain. Sensory motor function distally intact. Course Initial Documented Vital Signs Temperature 98.2 F 01/06/18 23:48 Pulse Rate 86 01/06/18 23:48 Respiratory Rate 18 01/06/18 23:48 Blood Pressure 124/72 01/06/18 23:48 Pulse Oximetry 97 01/06/18 23:48 Last Documented Vital Signs Temperature 98.2 F 01/06/18 23:48 Pulse Rate 72 01/07/18 00:43 Respiratory Rate 18 01/07/18 04:13 Blood Pressure 121/72 01/07/18 00:43 Pulse Oximetry 98 01/07/18 00:43 Medical Decision Making [facility] Narrative Medical decision making narrative: 42-year-old male with pain and swelling medial aspect of left elbow. Nontraumatic. Vancomycin 1 g IV given. Differential Diagnosis Differential Diagnosis: Differential diagnosis including cellulitis, abscess. Lab Data Lab results reviewed: Yes I reviewed the patient's lab results. Result diagrams: 01/07/18 03:15 01/07/18 03:15 Lab Results 01/07/18 01/07/18 Range/Units 03:15 03:15 CBC w Diff Auto diff final WBC 9.2 (4.0-11.0) th/mm3 RBC 4.48 L (4.50-5.90) mil/mm3 Hgb 13.2 (13.0-17.0) gm/dL Hct 39.2 (39.0-51.0) % MCV 87.5 (80.0-100.0) fL MCH 29.5 (27.0-34.0) pg MCHC 33.8 (32.0-36.0) % RDW 13.6 (11.6-17.2) % Plt Count 192 (150-450) th/mm3 MPV 7.7 (7.0-11.0) fL Neut % (Auto) 60.8 (16.0-70.0) % Lymph % (Auto) 24.5 (9.0-44.0) % [place] % (Auto) 11.9 H (0.0-8.0) % Eos % (Auto) 1.8 (0.0-4.0) % Baso % (Auto) 1.0 (0.0-2.0) % Neut # (Auto) 5.6 (1.8-7.7) th/mm3 Lymph # (Auto) 2.2 (1.0-4.8) th/mm3 [place] # (Auto) 1.1 H (0.0-0.9) th/mm3 Eos # (Auto) 0.2 (0.0-0.4) th/mm3 Baso # (Auto) 0.1 (0.0-0.2) th/mm3 WBC Differential . Differential Comment . Sodium 134 L (136-145) meq/L Potassium 3.5 (3.5-5.1) meq/L Chloride 100 (98-107) meq/L Carbon Dioxide 28.0 (21.0-32.0) meq/L Anion Gap 6 (5-15) meq/L BUN 11 (7-18) mg/dL Creatinine 0.83 (0.60-1.30) mg/dL Estimated GFR Greater than 89 (>89) mL/min Random Glucose 86 (74-106) mg/dL Calcium 8.2 L (8.5-10.1) mg/dL Total Bilirubin 0.5 (0.2-1.0) mg/dL AST 68 H (15-37) U/L ALT 51 (12-78) U/L Alkaline Phosphatase 109 (45-117) U/L Total Protein 7.5 (6.4-8.2) g/dL Albumin 3.1 L (3.4-5.0) g/dL Imaging Data Radiologist's impression: Elbow X-Ray 01/07/18 02:15 CONCLUSION: Negative examination Venous Doppler Study 01/07/18 02:18 CONCLUSION: 1. No evidence for acute thrombus. 2. Within the basilic vein in the antecubital region, and intravascular filling defect is noted which does not have the typical appearance of an acute thrombus. Either a foreign body versus chronic nonocclusive thrombus are differential diagnostic considerations. There does appear to be some surrounding edema but no definite evidence for abscess. Discharge Plan Discharge Disposition Patient Disposition: 30 Still Patient Discharge Details Diagnosis: Cellulitis of left elbow Physicians Team ED Provider: Konstantin Alan Primary Care Provider: Primary Care Maricel Gracia Rxs /Orders / Referrals /Forms Prescriptions: No Action gabapentin 800 mg Tablet 800 mg PO TID RF: 0 Discharge Interventions Interventions: Vital Signs Last Done: 01/07/18 00:43 Status ED Status: In Room
[2018-01-07] MEDS ORDERED: Vancomycin Inj 1 GM/200 ML PIGGYBACK IV.SIG ONE (04:31)
[2018-01-07] MEDS ORDERED: Temazepam 15 MG Capsule PO PRN (04:36)
[2018-01-07] MEDS ORDERED: Bisacodyl 10 MG Supp RECTAL PRN (04:36)
[2018-01-07] MEDS ORDERED: Acetaminophen 325 MG Tablet PO PRN (04:36)
[2018-01-07] MEDS ORDERED: Vancomycin Consult Pharmacy 1 EACH OTHER SCH (05:00)
[2018-01-07] MEDS: Sod Chloride 0.9% Inj 1,000 ML IV.CONT SCH ×2 (05:05→15:21)
[2018-01-07 05:51] LABS: Bilirubin,Urine Negative (Negative); Clarity,Urine Clear (Clear); Glucose,Urine (UA) Negative (Negative); Leukocyte Esterase,Urine Negative (Negative); Nitrite,Urine Negative (Negative); PH,Urine 6.5 (5.0-8.5); Specific Gravity,Urine Less/Equal 1.005 (1.002-1.035); Urobilinogen,Urine 0.2 mg/dL (Less than 2)
[2018-01-07 05:53] LABS: Color,Urine Straw (Yellw/Straw)
[2018-01-07 05:55] LABS: RBC,Urine 0-3 /hpf (0-3); Squamous Epithelial Cell,Urine 0-5 /hpf (0-5); WBC,Urine 0-5 /hpf (0-5)
[2018-01-07 05:58] LABS: Amphetamine Screen,Urine Neg (Neg); Barbiturate Screen,Urine Neg (Neg)
[2018-01-07 05:59] LABS: Cannabinoid Screen,Urine Neg (Neg); Cocaine Screen,Urine Neg (Neg)
[2018-01-07 06:06] LABS: Opiate Screen,Urine Neg (Neg)
[2018-01-07] MEDS: Senna/Docusate Sodium 8.6/50 MG Tablet PO SCH ×2 (09:16→20:07)
--- NOTE | 2018-01-07 12:16 | P.HP ---
History of Present Illness Primary Care Physician: No Primary Care Physician Chief Complaint: Left elbow pain History of Present Illness: 42-year-old male with no chronic medical illnesses who presented to the hospital because of pain and swelling of his left elbow. Patient states that she is in normal state of health until 2 days ago when he was at work in the yard. He states that he got poked with a aloe plant thorn and since then he started developing worsening swelling, pain at the medial aspect of his left elbow. He got to the point where he cannot bend his elbow so he came to emergency department for evaluation. Patient denied any fever, chills, open wound, exudates. Patient had workup done emergency department and x-ray did not indicate any acute abnormality. Ultrasound showed possible nonocclusive thrombus in the basilic vein versus foreign body. Patient was admitted to the hospital with empirical antibiotics for further evaluation and workup - Diagnosis (1) Cellulitis of left elbow Review of Systems All other systems reviewed negative except as stated in HPI Skin/Breast: Reports change in skin color, Reports redness, Reports skin pain PMFSH - History History Provided By: Patient - Medical History Medical History: Medical History (Last Reviewed 01/07/18 @ 12:06 by BRUCE Laughlin) History of back injury - Surgical History Surgical History: Surgical History (Last Updated 01/07/18 @ 12:06 by BRUCE Laughlin) No history of previous surgery - Family History Family History: Family History (Last Updated 01/07/18 @ 12:06 by BRUCE Laughlin) Other No pertinent family history - Tobacco History Second Hand Smoke Exposure: No Tobacco Use In Past 30 Days: Yes Smoking Status: Current every day smoker Tobacco Type: Cigarettes - Alcohol History How Often Do You Have a Drink Containing Alcohol: Never - Substance Use History Substance History: No History of Abuse - Travel History Recent Travel in the [place] Within the Last 8 Weeks: No Recent Travel Out of the Country Within the Last 8 Weeks: No - Immunization History Tetanus Immunization: <5 Years Hx Influenza Vaccine This Season: No Medications and Allergies Active Medications: Active Medications Acetaminophen (Tylenol) 650 mg PO Q4H PRN PRN Reason: Temp > 100.4 Hydrocodone Bitart/Acetaminophen ([place]ishop 10/325) 1 tab PO Q4H PRN PRN Reason: PAIN 6-10 Last Admin: 01/07/18 09:58 Dose: 1 tab Hydrocodone Bitart/Acetaminophen ([place]ishop 5/325) 1 tab PO Q4H PRN PRN Reason: PAIN 3-5 Al Hydroxide/Mg Hydroxide (Milk Of Magnesia Liq) 30 ml PO Q12H PRN PRN Reason: Mild Constipation Bisacodyl (Dulcolax Supp) 10 mg RECTAL DAILY PRN PRN Reason: SEVERE CONSITIPATION Cefepime HCl 1,000 mg/ Sodium (Chloride) 100 mls @ 200 mls/hr IV.SIG Q12H [facility] Last Infusion: 01/07/18 07:41 Dose: Infused Sodium Chloride (Ns Inj) 1,000 mls @ 100 mls/hr IV.CONT .Q10H [facility] Last Admin: 01/07/18 05:05 Dose: 100 mls/hr Pharmacy Profile Note (Vancomycin Consult Pharmacy) 0 mls @ 0 mls/hr OTHER UNSCH [facility] Vancomycin HCl 1,250 mg/ (Sodium Chloride) 262.5 mls @ 250 mls/hr IV.SIG Q12H [facility] Lactulose (Lactulose Liq) 30 ml PO DAILY PRN PRN Reason: SEVERE CONSITIPATION Miscellaneous Information ([facility] Ordered Lab Info) 0 each OTHER ONCE ONE Stop: 01/08/18 13:46 Ondansetron HCl (Zofran Inj) 4 mg IV.PUSH Q6H PRN PRN Reason: NAUSEA OR VOMITING Senna/Docusate Sodium (Faina-Colace) 1 tab PO BID [facility] Last Admin: 01/07/18 09:16 Dose: Not Given Sennosides (Senokot) 17.2 mg PO Q12H PRN PRN Reason: Moderate Constipation Sodium Chloride (Ns Flush) 2 ml IV.FLUSH PRN PRN PRN Reason: FLUSH AFTER USING IV ACCESS Temazepam (Restoril) 15 mg PO HS PRN PRN Reason: INSOMNIA Allergies Allergy/AdvReac Type Severity Reaction Status Date / Time morphine AdvReac Unknown N/V Verified 01/07/18 00:41 *MDRO Multi-Drug Resistant AdvReac Unknown Abdominal Uncoded 01/07/18 00:41 Organism Pain Home Medications Medication Instructions Recorded Confirmed Type gabapentin 800 mg PO TID 01/07/18 01/07/18 History Exam Vital signs: Vital Signs 01/06/18 23:48 01/07/18 00:43 01/07/18 04:13 Temperature 98.2 F Pulse Rate 86 72 Respiratory Rate 18 18 18 Blood Pressure 124/72 121/72 Pulse Oximetry 97 98 01/07/18 05:26 01/07/18 05:27 01/07/18 06:48 Temperature 96.9 F L Pulse Rate 85 54 L Respiratory Rate 18 18 16 Blood Pressure 120/73 120/57 L Pulse Oximetry 97 96 01/07/18 07:23 01/07/18 08:00 01/07/18 09:58 Temperature Pulse Rate Respiratory Rate 18 18 Blood Pressure Pulse Oximetry 97 01/07/18 10:18 01/07/18 10:25 Temperature 97.5 F L Pulse Rate 67 Respiratory Rate 15 18 Blood Pressure 108/60 Pulse Oximetry 97 Intake & Output 01/06/18 01/07/18 01/07/18 18:59 06:59 18:59 Intake Total 200 / 200 100 / 100 Output Total 700 / 700 Balance 200 / 200 -600 / -600 Weight 63.1 kg Intake: IV 200 / 200 100 / 100 Maxipime Inj 1,000 MG In NS Inj 100 / 100 100 ML @ 200 mls/hr IV.SIG Q12H [facility] Rx#:[id number] Vancomycin Inj 1 gm In 200 ml @ 200 / 200 200 mls/hr IV.SIG ONCE ONE Rx# :[id number] Output: Urine 700 / 700 Other: Date of Last Bowel Movement 01/06/18 Weight On Admission 63.3 kg Narrative: GENERAL: Well-developed, well-nourished, in no acute distress. alert and orientated HEENT: Head is normocephalic without any lesions or masses noted. Facial features are symmetric. Eyes: Pupils equal round reactive to light. Extraocular muscles are intact. Conjunctivae were clear. Oropharyngeal: Pharynx without any erythema edema. Tongue is midline without deviation. Buccal mucosa is moist without any masses or lesions NECK: Supple without any masses. Trachea midline no deviation. No JVD, no bruits are appreciated CARDIAC: Regular rhythm, regular rate. S1/S2 are heard. No murmurs gallops or rubs. LUNGS: Clear to auscultation bilaterally. No wheeze, rhonchi or rales. No use of accessory muscles on inspiration or expiration. ABDOMEN: Soft, nontender. Nondistended. Bowel sounds heard in all 4 quadrants. No organomegaly or masses. Negative rebound, negative guarding EXTREMITIES: No edema, pulses are equal bilaterally. No cyanosis or clubbing NEUROLOGY: Mood and affect appear appropriate. Cranial nerves II through XII grossly intact. Muscle strength 5/5 in upper and lower extremities bilaterally. Deep tendon reflexes are 2+ in upper and lower extremities bilaterally. LEFT ELBOW: Patient does have obvious swelling of the medial aspect of his elbow over the basilic vein. No obvious puncture wounds were identified. Patient does have scars on his arms from previous abscesses. Area is very granulated and hard. No fluctuation was appreciated. No draining areas. Results - Labs CBC & Chem 7: 01/07/18 03:15 01/07/18 03:15 Labs: Laboratory Results - last 24 hr 01/07/18 01/07/18 01/07/18 03:15 03:15 05:45 CBC w Diff Auto diff final WBC 9.2 RBC 4.48 L Hgb 13.2 Hct 39.2 MCV 87.5 MCH 29.5 MCHC 33.8 RDW 13.6 Plt Count 192 MPV 7.7 Neut % (Auto) 60.8 Lymph % (Auto) 24.5 [place] % (Auto) 11.9 H Eos % (Auto) 1.8 Baso % (Auto) 1.0 Neut # (Auto) 5.6 Lymph # (Auto) 2.2 [place] # (Auto) 1.1 H Eos # (Auto) 0.2 Baso # (Auto) 0.1 WBC Differential . Differential Comment . Sodium 134 L Potassium 3.5 Chloride 100 Carbon Dioxide 28.0 Anion Gap 6 BUN 11 Creatinine 0.83 Estimated GFR Greater than 89 Random Glucose 86 Calcium 8.2 L Total Bilirubin 0.5 AST 68 H ALT 51 Alkaline Phosphatase 109 Total Protein 7.5 Albumin 3.1 L Urine Color Urine Clarity Urine pH Ur Specific [place] Urine Protein Urine Glucose (UA) Urine Ketones Urine Occult Blood Urine Nitrate Urine Bilirubin Urine Urobilinogen Ur Leukocyte Esterase Urine RBC Urine WBC Ur Squamous Epith Cells Micro UA Comment Urine Culture Comments Urine Opiates Screen Neg Ur Barbiturates Screen Neg Ur Amphetamines Screen Neg U Benzodiazepines Scrn Neg Urine Cocaine Screen Neg U Cannabinoids Screen Neg 01/07/18 05:45 CBC w Diff WBC RBC Hgb Hct MCV MCH MCHC RDW Plt Count MPV Neut % (Auto) Lymph % (Auto) [place] % (Auto) Eos % (Auto) Baso % (Auto) Neut # (Auto) Lymph # (Auto) [place] # (Auto) Eos # (Auto) Baso # (Auto) WBC Differential Differential Comment Sodium Potassium Chloride Carbon Dioxide Anion Gap BUN Creatinine Estimated GFR Random Glucose Calcium Total Bilirubin AST ALT Alkaline Phosphatase Total Protein Albumin Urine Color Straw Urine Clarity Clear Urine pH 6.5 Ur Specific [place] Less/equal 1.005 Urine Protein Negative Urine Glucose (UA) Negative Urine Ketones Negative Urine Occult Blood Negative Urine Nitrate Negative Urine Bilirubin Negative Urine Urobilinogen 0.2 Ur Leukocyte Esterase Negative Urine RBC 0-3 Urine WBC 0-5 Ur Squamous Epith Cells 0-5 Micro UA Comment Culture not ind Urine Culture Comments Culture not ind Urine Opiates Screen Ur Barbiturates Screen Ur Amphetamines Screen U Benzodiazepines Scrn Urine Cocaine Screen U Cannabinoids Screen - Imaging Impressions Elbow X-Ray 01/07/18 02:15 CONCLUSION: Negative examination Venous Doppler Study 01/07/18 02:18 CONCLUSION: 1. No evidence for acute thrombus. 2. Within the basilic vein in the antecubital region, and intravascular filling defect is noted which does not have the typical appearance of an acute thrombus. Either a foreign body versus chronic nonocclusive thrombus are differential diagnostic considerations. There does appear to be some surrounding edema but no definite evidence for abscess. Caprini VTE Risk Assessment Caprini VTE Risk Assessment: Moderate/High Risk (score >= 2) Caprini Risk Assessment Model: Point Value = 1 Point Value = 2 Point Value = 3 Point Value = 5 Age 41-60 Minor surgery BMI > 25 kg/m2 Swollen legs Varicose veins or History of unexplained or recurrent spontaneous Oral contraceptives or hormone replacement Sepsis (< 1 month) Serious lung disease, including pneumonia (< 1 month) Abnormal pulmonary function Acute myocardial infarction Congestive heart failure (< 1 month) History of inflammatory bowel disease Medical patient at bed rest Age 61-74 Arthroscopic surgery Major open surgery (> 45 min) Laparoscopic surgery (> 45 min) Malignancy Confined to bed (> 72 hours) Immobilizing plaster cast Central venous access Age >= 75 History of VTE Family history of VTE Factor V Leiden Prothrombin [id number] Lupus anticoagulant Anticardiolipin antibodies Elevated serum homocysteine Heparin-induced thrombocytopenia Other congenital or acquired thrombophilia Stroke (< 1 month) Elective arthroplasty Hip, pelvis, or leg fracture Acute spinal cord injury (< 1 month) Prophylaxis Regimen: Total Risk Factor Score Risk Level Prophylaxis Regimen 0-1 Low Early ambulation 2 Moderate Order ONE of the following: *Sequential Compression Device (SCD) *Heparin 5000 units SQ BID 3-4 Higher Order ONE of the following medications: *Heparin 5000 units SQ TID *Enoxaparin/Lovenox 40 mg SQ daily (WT < 150 kg, CrCl > 30 mL/min) *Enoxaparin/Lovenox 30 mg SQ daily (WT < 150 kg, CrCl > 10-29 mL/min) *Enoxaparin/Lovenox 30 mg SQ BID (WT < 150 kg, CrCl > 30 mL/min) AND/OR *Sequential Compression Device (SCD) 5 or more Highest Order ONE of the following medications: *Heparin 5000 units SQ TID (Preferred with Epidurals) *Enoxaparin/Lovenox 40 mg SQ daily (WT < 150 kg, CrCl > 30 mL/min) *Enoxaparin/Lovenox 30 mg SQ daily (WT < 150 kg, CrCl > 10-29 mL/min) *Enoxaparin/Lovenox 30 mg SQ BID (WT < 150 kg, CrCl > 30 mL/min) AND *Sequential Compression Device (SCD) Assessment and Plan - Assessment (1) Cellulitis of left elbow Code(s): L03.114 - Cellulitis of left upper limb Status: Acute - Plan Left elbow cellulitis -Unknown etiology at this time. Patient denies any extracurricular activities. Indicates that he got poked by aloe plant. -X-ray does not indicate any acute abnormality, ultrasound does indicate possible foreign body or partially obstructing clot in the basilic vein -Patient started on empirical antibiotics include vancomycin and cefepime -Continue monitor for improvement -Continue pain control Partially obstructing thrombus in the basilic vein, possible thrombophlebitis -Patient already on empirical antibiotics -Start aspirin DVT prevention -Subcutaneous heparin
[2018-01-07] MEDS: Heparin - SQ 10,000 UNITS/ML Vial SQ SCH ×2 (12:38→20:07)
[2018-01-07] MEDS: Vancomycin Inj 1,250 MG in Sodium Chlor 0.9% Inj 250 ML IV.SIG SCH (13:34)
[2018-01-08] MEDS: Sod Chloride 0.9% Inj 1,000 ML IV.CONT SCH ×3 (03:11→23:16)
[2018-01-08] MEDS: Vancomycin Inj 1,250 MG in Sodium Chlor 0.9% Inj 250 ML IV.SIG SCH ×2 (03:11→14:23)
[2018-01-08 08:45] LABS: Baso % (Auto) 0.1 % (0.0-2.0); Eos # (Auto) 0.2 th/mm3 (0.0-0.4); Eos % (Auto) 3.3 % (0.0-4.0); Hematocrit 36.4 % (39.0-51.0); Hemoglobin 12.7 gm/dL (13.0-17.0); Lymph # (Auto) 1.7 th/mm3 (1.0-4.8); Lymph % (Auto) 26.2 % (9.0-44.0); Mean Corpuscular HGB Conc 34.8 % (32.0-36.0); Mean Corpuscular Hemoglobin 30.2 pg (27.0-34.0); Mean Corpuscular Volume 86.7 fL (80.0-100.0); Mean Platelet Volume 8.2 fL (7.0-11.0); Mono # (Auto) 0.7 th/mm3 (0.0-0.9); Mono % (Auto) 11.5 % (0.0-8.0); Neut # (Auto) 3.8 th/mm3 (1.8-7.7); Neut % (Auto) 58.9 % (16.0-70.0); Platelet Count 172 th/mm3 (150-450); Red Cell Distribution Width 14.4 % (11.6-17.2); White Blood Count 6.4 th/mm3 (4.0-11.0)
--- NOTE | 2018-01-08 08:55 | P.PN ---
Subjective Interval history: Follow-up cellulitis. Patient seen and examined, lying in bed with complaints of pain to his left elbow. Patient states that the swelling and pain is actually worsened overnight. Erythema is mild, just slightly pink. Elbow is firm and warm to touch. Patient is afebrile overnight. Vital signs stable. Denies any chest pain, shortness of breath, vomiting, nausea, vomiting, diarrhea or dysuria. Tolerating p.o. intake well. Physical Exam Vital signs: Vital Signs 01/07/18 09:58 01/07/18 10:18 01/07/18 10:25 Temperature 97.5 F L Pulse Rate 67 Respiratory Rate 18 15 18 Blood Pressure 108/60 Pulse Oximetry 97 01/07/18 13:28 01/07/18 14:52 01/07/18 15:22 Temperature 96.8 F L Pulse Rate 66 Respiratory Rate 14 18 18 Blood Pressure 109/56 L Pulse Oximetry 98 01/07/18 17:52 01/07/18 20:00 01/08/18 00:00 Temperature 97.1 F L 98.1 F 97.4 F L Pulse Rate 72 67 68 Respiratory Rate 16 18 18 Blood Pressure 120/58 L 118/69 116/60 Pulse Oximetry 97 98 95 01/08/18 07:40 Temperature 97.8 F Pulse Rate 61 Respiratory Rate 20 Blood Pressure 107/67 Pulse Oximetry 94 L Intake & Output 01/07/18 01/08/18 01/08/18 18:59 06:59 18:59 Intake Total 1462.5 / 1462.5 2322.5 / 2322.5 Output Total 700 / 700 Balance 762.5 / 762.5 2322.5 / 2322.5 Weight 65.6 kg Intake: IV 1462.5 / 1462.5 1262.5 / 1262.5 NS Inj 1,000 ML @ 100 mls/hr IV 1000 / 1000 1000 / 1000 .CONT .Q10H [facility] Rx#:[id number] Maxipime Inj 1,000 MG In NS Inj 200 / 200 100 ML @ 200 mls/hr IV.SIG Q12H [facility] Rx#:[id number] Vancomycin Inj 1,250 MG In NS 262.5 / 262.5 262.5 / 262.5 Inj 250 ML @ 250 mls/hr IV.SIG Q12H [facility] Rx#:[id number] Oral 1060 / 1060 Output: Urine 700 / 700 Other: # Voids 3 3 Date of Last Bowel Movement 01/06/18 01/06/18 Narrative: GENERAL: Well-developed, well-nourished patient in NAD. SKIN: Warm and dry. No rash. Left upper extremity cellulitis with mild erythema , swelling and firm to touch. HEAD: Normocephalic. Atraumatic. EYES: Pupils equal and round. No scleral icterus. No injection or drainage. ENT: No nasal bleeding or discharge. Mucous membranes pink and moist. NECK: Supple. Trachea midline. CARDIOVASCULAR: Regular rate and rhythm. S1, S2 noted. No murmur appreciated. RESPIRATORY: No accessory muscle use. Clear to auscultation. Breath sounds equal bilaterally. GASTROINTESTINAL: Abdomen soft, non-tender, nondistended. Normoactive bowel sounds x4. MUSCULOSKELETAL: No obvious deformities. Extremities without clubbing, cyanosis , or edema. NEUROLOGICAL: Awake and alert. No obvious cranial nerve deficits. Motor grossly within normal limits. 5/5 muscle strength in bilateral upper and lower extremities. Normal speech. PSYCHIATRIC: Appropriate mood and affect; insight and judgment normal. Results - Labs CBC & Chem 7: 01/08/18 07:30 01/07/18 03:15 Laboratory Results - last 24 hr 01/08/18 07:30 CBC w Diff Slide review pending WBC 6.4 RBC 4.20 L Hgb 12.7 L Hct 36.4 L MCV 86.7 MCH 30.2 MCHC 34.8 RDW 14.4 Plt Count 172 MPV 8.2 Neut % (Auto) 58.9 Lymph % (Auto) 26.2 [place] % (Auto) 11.5 H Eos % (Auto) 3.3 Baso % (Auto) 0.1 Neut # (Auto) 3.8 Lymph # (Auto) 1.7 [place] # (Auto) 0.7 Eos # (Auto) 0.2 Baso # (Auto) 0.0 Differential Comment . Assessment and Plan - Assessment (1) Cellulitis of left elbow Code(s): L03.114 - Cellulitis of left upper limb Status: Acute - Plan Left elbow cellulitis -Unknown etiology at this time. Patient denies any extracurricular activities. Indicates that he got poked by [email or web address] plant. -X-ray does not indicate any acute abnormality, ultrasound does indicate possible foreign body or partially obstructing clot in the basilic vein. -Patient started on empirical antibiotics include vancomycin and cefepime, will continue. -Continue monitor for improvement, has slightly worsened overnight. -Will order CT to further evaluate. Follow. -Continue pain control. Partially obstructing thrombus in the basilic vein, possible thrombophlebitis. -Patient already on empirical antibiotics. -Continue aspirin. DVT prevention -Subcutaneous heparin. Discharge Planning: Awaiting clinical improvement. Obtaining CT today.
[2018-01-08 09:18] LABS: Alanine Aminotransferase 62 U/L (12-78); Albumin 2.5 g/dL (3.4-5.0); Alkaline Phosphatase 103 U/L (45-117); Anion Gap 5 meq/L (5-15); Aspartate Aminotransferase 87 U/L (15-37); Blood Urea Nitrogen 10 mg/dL (7-18); Calcium 7.7 mg/dL (8.5-10.1); Carbon Dioxide 25.7 meq/L (21.0-32.0); Chloride 108 meq/L (98-107); Glomerular Filtration Rate Greater Than 89 mL/min (>89); Glucose,Random 86 mg/dL (74-106); Potassium 3.6 meq/L (3.5-5.1); Sodium 139 meq/L (136-145); Total Protein 6.6 g/dL (6.4-8.2)
[2018-01-08] MEDS: Heparin - SQ 10,000 UNITS/ML Vial SQ SCH ×2 (10:08→20:59)
[2018-01-08] MEDS: Senna/Docusate Sodium 8.6/50 MG Tablet PO SCH ×2 (10:08→20:59)
--- NOTE | 2018-01-08 10:16 | CT ---
EXAM DATE: 01/08/2018 9:59 AM EDT AGE/SEX: 42 years / Male INDICATIONS: Left elbow pain and swelling after getting poked by a plant. CLINICAL DATA: This is the patient's initial encounter. Patient reports that signs and symptoms have been present for 2 days and indicates a pain score of 8/10. MEDICAL/SURGICAL HISTORY: None. None. RADIATION DOSE: 23.90 CTDI (mGy) COMPARISON: [facility] [place], CT ELBOW LEFT W CONTRAST, 09/06/2014. . TECHNIQUE: Multiple contiguous axial images were acquired using a multirow detector CT scanner after intravenous administration of 95 ml Omnipaque 350 (iohexol) nonionic water-soluble contrast as a si ngle exam dose. Multiplanar reconstruction was performed in the sagittal and coronal planes. Using automated exposure control and adjustment of the mA and/or kV according to patient size, radiation do se was kept as low as reasonably achievable to obtain optimal diagnostic quality images. DICOM forma t image data is available electronically for review and comparison. FINDINGS: Bones: The bony structures about the elbow are in normal alignment. The distal humerus and proximal radius and ulna are intact. No fracture is seen. Joints: No significant arthropathy or bony hypertrophy is seen. Soft Tissues: There is soft tissue edema and cellulitic changes along the anterior and lateral proxi mal forearm. There is a small fluid collection and presumed abscess measuring 2.4 x 1.3 cm. There is some intraluminal thrombus within the cephalic vein.. Other: No foreign bodies seen. Post Contrast: No abnormal areas of enhancement are seen in the marrow or soft tissues. CONCLUSION: 1. Cellulitis with small abscess. 2. There is thrombosis of the cephalic vein. Electronically signed by: Oral Valenzuela MD 01/08/2018 10:15 AM EDT
[2018-01-08] MEDS ORDERED: Pharmacy Ordered Lab Info OTHER ONE (13:45)
[2018-01-09] MEDS: Heparin - SQ 10,000 UNITS/ML Vial SQ SCH (08:41)
--- NOTE | 2018-01-09 08:41 | P.PN ---
Subjective Interval history: Follow-up left elbow cellulitis as well as superficial DVT. Patient seen and examined, lying in bed comfortably, states that the pain and swelling of his left elbow has minimally improved overnight. Upon assessment left elbow is still with swelling and mild erythema. Better range of motion today. orthodontic technician at bedside to evaluate right upper extremity for DVT as well as possible cellulitis on right arm. Physical Exam Vital signs: Vital Signs 01/08/18 11:14 01/08/18 15:32 01/08/18 20:00 Temperature 97.6 F 97.8 F 98.0 F Pulse Rate 64 65 68 Respiratory Rate 20 20 18 Blood Pressure 110/68 140/65 118/71 Pulse Oximetry 94 L 94 L 97 01/08/18 23:14 01/09/18 00:00 01/09/18 05:36 Temperature 97.8 F Pulse Rate 55 L Respiratory Rate 18 18 16 Blood Pressure 125/74 Pulse Oximetry 97 Intake & Output 01/08/18 01/09/18 01/09/18 18:59 06:59 18:59 Intake Total 2542.5 / 2542.5 3094 / 3094 Output Total 1450 / 1450 Balance 2542.5 / 2542.5 1644 / 1644 Weight 65.6 kg Intake: IV 1462.5 / 1462.5 1614 / 1614 NS Inj 1,000 ML @ 100 mls/hr IV 1000 / 1000 1000 / 1000 .CONT .Q10H LUCIA Rx#:[id number] Maxipime Inj 1,000 MG In NS Inj 200 / 200 100 / 100 100 ML @ 200 mls/hr IV.SIG Q12H LUCIA Rx#:[id number] Vancomycin Inj 1,250 MG In NS 262.5 / 262.5 Inj 250 ML @ 250 mls/hr IV.SIG Q12H LUCIA Rx#:[id number] Vancomycin Inj 1,400 MG In NS 514 / 514 Inj 500 ML @ 250 mls/hr IV.SIG Q12H LUCIA Rx#:[id number] Oral 1080 / 1080 1480 / 1480 Output: Urine 1450 / 1450 Other: # Voids 5 Narrative: GENERAL: Well-developed, well-nourished patient in [facility]. SKIN: Warm and dry. No rash. Left upper extremity cellulitis with mild erythema , swelling and induration. No fluctuance noted. Right upper extremity erythema with firm indurated area. HEAD: Normocephalic. Atraumatic. EYES: Pupils equal and round. No scleral icterus. No injection or drainage. ENT: No nasal bleeding or discharge. Mucous membranes pink and moist. NECK: Supple. Trachea midline. CARDIOVASCULAR: Regular rate and rhythm. S1, S2 noted. No murmur appreciated. RESPIRATORY: No accessory muscle use. Clear to auscultation. Breath sounds equal bilaterally. GASTROINTESTINAL: Abdomen soft, non-tender, nondistended. Normoactive bowel sounds x4. MUSCULOSKELETAL: No obvious deformities. Extremities without clubbing, cyanosis , or edema. NEUROLOGICAL: Awake and alert. No obvious cranial nerve deficits. Motor grossly within normal limits. 5/5 muscle strength in bilateral upper and lower extremities. Normal speech. PSYCHIATRIC: Appropriate mood and affect; insight and judgment normal. Results - Labs CBC & Chem 7: 01/09/18 18:22 01/08/18 07:30 Laboratory Results - last 24 hr 01/08/18 01/08/18 01/08/18 07:30 07:30 14:05 CBC w Diff Slide review pending WBC 6.4 RBC 4.20 L Hgb 12.7 L Hct 36.4 L MCV 86.7 MCH 30.2 MCHC 34.8 RDW 14.4 Plt Count 172 MPV 8.2 Neut % (Auto) 58.9 Lymph % (Auto) 26.2 [place] % (Auto) 11.5 H Eos % (Auto) 3.3 Baso % (Auto) 0.1 Neut # (Auto) 3.8 Lymph # (Auto) 1.7 [place] # (Auto) 0.7 Eos # (Auto) 0.2 Baso # (Auto) 0.0 WBC Differential . Diff Scan Auto diff confirmed Differential Comment . Sodium 139 Potassium 3.6 Chloride 108 H D Carbon Dioxide 25.7 Anion Gap 5 BUN 10 Creatinine 0.76 Estimated GFR Greater than 89 Random Glucose 86 Calcium 7.7 L Total Bilirubin 0.2 AST 87 H ALT 62 Alkaline Phosphatase 103 Total Protein 6.6 D Albumin 2.5 L D Vancomycin Trough 9.6 Microbiology 01/07/18 03:15 Blood - Peripheral Aerobic Blood Culture - Preliminary No growth in 1 day 01/07/18 03:15 Blood - Peripheral Anaerobic Blood Culture - Preliminary No growth in 1 day 01/07/18 03:10 Blood - Peripheral Aerobic Blood Culture - Preliminary No growth in 1 day 01/07/18 03:10 Blood - Peripheral Anaerobic Blood Culture - Preliminary No growth in 1 day - Imaging Impressions Elbow CT 01/08/18 00:00 CONCLUSION: 1. Cellulitis with small abscess. 2. There is thrombosis of the cephalic vein. Assessment and Plan - Assessment (1) Cellulitis of left elbow Code(s): L03.114 - Cellulitis of left upper limb Status: Acute - Plan Left elbow cellulitis New right upper extremity abscess New right AC suspected abscess -Unknown etiology at this time. Patient denies any extracurricular activities. Indicates that he got poked by [employer]. -X-ray or left UE does not indicate any acute abnormality, left ultrasound does indicate possible foreign body or partially obstructing clot in the basilic vein. -A left upper extremity CT was done and report reviewed, showing no indication of foreign body. It does show some possibility of abscess. -Spoke to hand surgeon who reviewed report of left UE, states that this will likely improve with IV antibiotics and since US does not indicate abscess will assess for improvement for now. -Patient continued on empirical antibiotics including vancomycin and cefepime. -Continue pain control. -Right UE US showing occlusive thrombus in cephalic and basilic vein as well as two possible abscesses. -Hematology consulted, awaiting input. -ID consulted as well for multiple abscesses despite IV antibiotics, await recommendations. Thrombophlebitis with partially obstructing thrombus in the left basilic vein New right upper extremity occlusive thrombus in the cephalic and basilic vein -Patient already on empirical antibiotics. -Continue aspirin. -Hematology consulted. DVT prevention -Subcutaneous heparin. Discharge Planning: Awaiting clinical improvement. Heme and ID consulted.
[2018-01-09] MEDS: Senna/Docusate Sodium 8.6/50 MG Tablet PO SCH ×2 (08:43→20:25)
--- NOTE | 2018-01-09 09:50 | US ---
EXAM DATE: 01/09/2018 9:21 AM EDT AGE/SEX: 42 years / Male INDICATIONS: Pain and swelling of the right upper extremity with a red palpable lump. CLINICAL DATA: This is the patient's initial encounter. Patient reports that signs and symptoms have been present for 2 days and indicates a pain score of 8/10. MEDICAL/SURGICAL HISTORY: . Back injury. None. COMPARISON: [facility] [place], CT FOREARM RIGHT W CONTRAST, 05/22/2016. . FINDINGS: Occlusive thrombus is present in the proximal cephalic vein which is through the area of p alpable abnormality. The palpable abnormality measures up to 4.5 x 1.7 x 1.2 cm and is heterogeneous with some mild internal color flow. The cephalic vein runs through the lump. The distal cephalic vein is patent but is noted to have thickened bean. There is also occlusive thrombus in the mid basilic vein. The distal portion is patent but also has thickened bean. There is also a complex collection i n the right antecubital fossa measuring up to 1.4 x 1.4 x 0.7 cm. The deep venous system is patent. The jugular vein, subclavian vein and axillary veins are patent. CONCLUSION: 1. Occlusive thrombus in portions of the proximal cephalic vein and mid basilic vein. 2. Palpable abnormality corresponds to a heterogeneous masslike area measuring up to 4.5 x 1.7 x 1.2 cm which is heterogeneous and has some internal color flow. Is nonspecific but could represent an ab scess. 3. Second focal complex collection right antecubital fossa measuring up to 1.4 x 1.4 x 0.7 cm. This may represent an abscess as well. Electronically signed by: Aidan Storm MD 01/09/2018 9:48 AM EDT
[2018-01-09] MEDS: Sod Chloride 0.9% Inj 1,000 ML IV.CONT SCH ×2 (10:01→20:25)
[2018-01-09] MEDS: Vancomycin Inj 1,400 MG in Sodium Chlor 0.9% Inj 500 ML IV.SIG SCH ×3 (12:22)
--- NOTE | 2018-01-09 13:14 | XR ---
EXAM DATE: 01/09/2018 1:10 PM EDT AGE/SEX: 42 years / Male INDICATIONS: Chest pains. CLINICAL DATA: This is the patient's initial encounter. Patient reports that signs and symptoms have been present for 1 day and indicates a pain score of 4/10. MEDICAL/SURGICAL HISTORY: None. None. [place] [facility] [place]. . FINDINGS: A single AP view of the chest demonstrates the lungs to be symmetrically aerated without evidence of mass, infiltrate or effusion. The cardiomediastinal contours are unremarkable. Osseous structures a re intact. CONCLUSION: Electronically signed by: Errol Meade MD 01/09/2018 1:12 PM EDT
[2018-01-09 18:30] LABS: Hematocrit 39.7 % (39.0-51.0); Hemoglobin 13.3 gm/dL (13.0-17.0); Mean Corpuscular HGB Conc 33.4 % (32.0-36.0); Mean Corpuscular Hemoglobin 29.5 pg (27.0-34.0); Mean Corpuscular Volume 88.4 fL (80.0-100.0); Mean Platelet Volume 7.3 fL (7.0-11.0); Platelet Count 221 th/mm3 (150-450); Red Blood Count 4.49 mil/mm3 (4.50-5.90); Red Cell Distribution Width 14.1 % (11.6-17.2); White Blood Count 5.7 th/mm3 (4.0-11.0)
[2018-01-09] MEDS: Heparin Drip 25,000 UNIT/250 ML BAG IV.CONT PRN (20:40)
[2018-01-10] MEDS ORDERED: Heparin 10,000 UNITS/10 ML Vial (for IV use) IV.PUSH PRN (00:20)
[2018-01-10] MEDS: Vancomycin Inj 1,400 MG in Sodium Chlor 0.9% Inj 500 ML IV.SIG SCH ×3 (00:20→23:44)
--- NOTE | 2018-01-10 01:38 | MB ---
cc: Jonathan Hough MD DATE: 01/09/2018 REASON FOR CONSULTATION: The patient with occlusive thrombus in the proximal cephalic vein and mid basilic vein of the right upper extremity. HISTORY OF PRESENT ILLNESS: This is a 42-year-old male who has no past medical history and presented to the emergency department due to pain and swelling in his left elbow. He states that he was working in his yard, and he tripped on an aloe plant and had puncture injury from the spines into his left elbow. He states that subsequently his elbow became swollen. The skin became quite tense, and it was erythematous. The pain became unbearable, and he presented to the emergency department. He had a Doppler ultrasound of the left arm, which did not show any acute thrombus. However within the basilic vein in the antecubital area, there was a filling defect which had an appearance of an acute thrombus. This appeared to be a nonocclusive thrombus. The patient was admitted to the hospital, and he was initiated on empiric antibiotics due to concern for cellulitis of the skin. The patient was started on vancomycin and cefepime. The patient subsequently had a CT scan of the left elbow, which revealed soft tissue edema and cellulitic changes along the anterior and lateral proximal forearm. There was a small fluid collection and possibly an abscess, which is approximately 2.4 x 1.3 cm. There was also concern for intraluminal thrombus in the cephalic vein. The primary team has discussed this case with the hand surgeon. The patient subsequently has developed swelling and cellulitic changes of the skin in the right upper arm as well. He underwent a Doppler ultrasound today which shows an occlusive thrombus in the proximal cephalic vein which is through the area of palpable abnormality. This abnormality is approximately 4.5 x 1.7 x 1.2 cm and is heterogeneous. The cephalic vein runs through the area of swelling. There is occlusive thrombus in the mid basilic vein. There is also a complex collection in the right antecubital fossa which is measuring 1.4 x 1.4 x 0.7 cm. Blood cultures were obtained on admission, and they do not show any growth. The patient is a smoker and consumes approximately 1 pack of cigarettes per day. He denies drinking alcohol excessively. He denies any illicit drug use. He denies IV drug use. 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 REVIEW OF SYSTEMS: A comprehensive review of system was completed which is negative except as in the HPI. PAST MEDICAL HISTORY: None. PAST MEDICAL HISTORY: History of chronic back pain. SURGICAL HISTORY: No previous surgical history. FAMILY HISTORY: Reviewed and is noncontributory to this admission. SOCIAL HISTORY: He works as a safety leader. He smokes 1 pack of cigarettes per day. No history of alcohol abuse. No illicit drug use. No IV drug use. MEDICATIONS: Inpatient medications are reviewed. Tylenol p.r.n., [place] 10/325 p.o. q. 4 hours p.r.n., milk of magnesia 30 mL p.o. q. 12 hours, aspirin 325 mg p.o. daily, cefepime 1 g IV q. 12 hours, lactulose p.r.n., Zofran p.r.n., senna and docusate p.o. b.i.d., temazepam 50 mg p.o. at bedtime p.r.n. ALLERGIES: HE IS ALLERGIC TO MORPHINE. PHYSICAL EXAMINATION: VITAL SIGNS: Blood pressure is 114/68, pulse is in the 60s, temperature is 98.1. O2 saturations are 95% on room air. GENERAL: Well-developed, well-nourished male in no apparent distress. HEENT: Pupils are equal, round, and reactive to light. EOMI. No thrush. No lesions. NECK: Supple. No JVD. No bruits. No lymphadenopathy. CHEST: Clear to auscultation bilaterally. CARDIAC: S1, S2. Regular rate and rhythm. ABDOMEN: Soft, nontender, nondistended. Bowel sounds are present. EXTREMITIES: Without any edema, erythema, cyanosis. SKIN: Without any petechia, lesion, or bruises. NEUROLOGIC: No focal deficit. PSYCHIATRIC: Mood and affect are appropriate. SKIN: Upper extremity, left elbow, medial side with hard nodular area, appears to be cellulitic. It is erythematous. It is quite tender to palpation. It is nonfluctuant. The right upper extremity is also erythematous, firm in the area that is also mildly erythematous. LYMPHATIC: No underlying lymphadenopathy. LABORATORY DATA: WBC 5.7, hemoglobin 13.3, platelet count is 221. Serum chemistry: Sodium 139, potassium 3.6, BUN 10, creatinine 0.76, calcium 7.7. AST is 87, ALT is 62, alkaline phosphatase is 103, total protein is 6.6, albumin is 2.5. UA was negative. UDS screen for opiates, barbiturates, amphetamines, benzodiazepines, cocaine, and cannabinoids were negative. IMAGING STUDIES: Reviewed in the EMR and discussed in the HPI above. ASSESSMENT AND PLAN: This is a 42-year-old male with no significant medical history, who presents to the emergency room after a puncture injury after he was working in his backyard. He states that he fell on an aloe plant. He presents to the emergency department with significant left upper extremity swelling, pain, and erythema. 1. Left arm nonocclusive thrombus in the antecubital area and intravesicular filling defect. The patient was also found to have an occlusive thrombus in the right arm involving the proximal cephalic vein and mid basilic vein. There is possibly an abscess which is approximately 4.5 x 1.7 x 1.2 cm. There is a second focal area of fluid collection in the right antecubital area which is 1.4 x 1.4 x 0.7 cm. The patient has a significant amount of pain in both of his arms. There appears to be significant cellulitis and possible abscess formation in the right arm. In the presence of all these symptoms and an occlusive thrombus, I would recommend anticoagulation with heparin. We will start this patient on heparin GTT. I would recommend consulting surgery for an evaluation. This patient may need an abscess drainage. Having cellulitis in both arms is quite atypical. The patient denies having any history of IV drug abuse. Blood cultures have been negative. I agree with broad-spectrum antibiotics. The patient will need anticoagulation for at least 30 days, and then he will need to be reassessed. 2. Elevated liver function tests. His AST is elevated at 87, ALT is normal. He denies drinking alcohol excessively. I would defer any further workup in reference to his transaminitis to the primary team. Consider hepatitis testing and ultrasound of the abdomen. Thank you for allowing me to participate in the care of this patient. MD SIDDHARTH Elena/laly , 12:13 AM , 12:33 AM
[2018-01-10] MEDS: Sod Chloride 0.9% Inj 1,000 ML IV.CONT SCH ×2 (04:58→12:21)
--- NOTE | 2018-01-10 08:28 | P.CONID ---
History of Present Illness Service: Infectious Disease Consult date: 01/10/18 Requesting Physician: Tiffany Malin Primary Care Provider: No Primary Care Physician Family Provider: No Primary Care Physician Chief Complaint: Left elbow pain History of Present Illness: Patient came in with pain , swelling of left arm near elbow. Says he was working in yard and aloe plant brushed hi. He says in hosp now developed rt arm swelling. Noted to have blood clots and Hematology evaluating. No fever, chills. Denies drug use . Has had abscess on left arm before. Review of Systems All other systems reviewed negative except as stated in HPI [facility] - History History Provided By: Patient - Medical History Medical History: Medical History (Last Reviewed 01/07/18 @ 12:06 by BRUCE Laughlin) History of back injury - Surgical History Surgical History: Surgical History (Last Updated 01/07/18 @ 12:06 by BRUCE Laughlin) No history of previous surgery - Family History Family History: Family History (Last Updated 01/07/18 @ 12:06 by BRUCE Laughlin) Other No pertinent family history - Tobacco History Second Hand Smoke Exposure: No Tobacco Use In Past 30 Days: Yes Smoking Status: Current every day smoker Tobacco Type: Cigarettes - Alcohol History How Often Do You Have a Drink Containing Alcohol: Never - Substance Use History Substance History: No History of Abuse - Travel History Recent Travel in the [place] Within the Last 8 Weeks: No Recent Travel Out of the Country Within the Last 8 Weeks: No - Immunization History Tetanus Immunization: <5 Years Hx Influenza Vaccine This Season: No Medications and Allergies Active Medications: Active Medications Acetaminophen (Tylenol) 650 mg PO Q4H PRN PRN Reason: Temp > 100.4 Hydrocodone Bitart/Acetaminophen ([place] 10/325) 1 tab PO Q4H PRN PRN Reason: PAIN 6-10 Last Admin: 01/10/18 06:15 Dose: 1 tab Hydrocodone Bitart/Acetaminophen ([place] 5/325) 1 tab PO Q4H PRN PRN Reason: PAIN 3-5 Al Hydroxide/Mg Hydroxide (Milk Of Magnesia Liq) 30 ml PO Q12H PRN PRN Reason: Mild Constipation Aspirin (Ecotrin) 325 mg PO DAILY LUCIA Last Admin: 01/09/18 08:43 Dose: 325 mg Bisacodyl (Dulcolax Supp) 10 mg RECTAL DAILY PRN PRN Reason: SEVERE CONSITIPATION Heparin Sodium (Porcine) (Heparin Inj) 2,500 units IV.PUSH UNSCH PRN PRN Reason: aPTT 25-39 Heparin Sodium (Porcine) (Heparin Inj) 5,000 units IV.PUSH UNSCH PRN PRN Reason: aPTT < 25 Sodium Chloride (Ns Inj) 1,000 mls @ 100 mls/hr IV.CONT .Q10H [facility] Last Admin: 01/10/18 04:58 Dose: 100 mls/hr Pharmacy Profile Note (Vancomycin Consult Pharmacy) 0 mls @ 0 mls/hr OTHER UNSCH [facility] Vancomycin HCl 1,400 mg/ (Sodium Chloride) 514 mls @ 250 mls/hr IV.SIG Q12H [facility] Last Infusion: 01/10/18 04:59 Dose: Infused Heparin Sodium/Dextrose (Heparin/D5w 25,000 U/250 Ml) 25,000 unit in 250 mls @ 0 mls/hr IV.CONT TITRATE PRN; Protocol PRN Reason: Per Protocol Last Admin: 01/09/18 20:40 Dose: 1,100 units/hr, 11 mls/hr Ampicillin Sodium/Sulbactam (Sodium 3 gm/ Sodium Chloride) 100 mls @ 200 mls/ hr IV.SIG Q6H [facility] Lactulose (Lactulose Liq) 30 ml PO DAILY PRN PRN Reason: SEVERE CONSITIPATION Miscellaneous Information ([facility] Ordered Lab Info) 1 each OTHER ONCE ONE Stop: 01/10/18 11:46 Ondansetron HCl (Zofran Inj) 4 mg IV.PUSH Q6H PRN PRN Reason: NAUSEA OR VOMITING Senna/Docusate Sodium (Faina-Colace) 1 tab PO BID [facility] Last Admin: 01/09/18 20:25 Dose: 1 tab Sennosides (Senokot) 17.2 mg PO Q12H PRN PRN Reason: Moderate Constipation Sodium Chloride (Ns Flush) 2 ml IV.FLUSH PRN PRN PRN Reason: FLUSH AFTER USING IV ACCESS Temazepam (Restoril) 15 mg PO HS PRN PRN Reason: INSOMNIA Allergies Allergy/AdvReac Type Severity Reaction Status Date / Time morphine AdvReac Unknown N/V Verified 01/07/18 00:41 *MDRO Multi-Drug Resistant AdvReac Unknown Abdominal Uncoded 01/07/18 00:41 Organism Pain Home Medications Medication Instructions Recorded Confirmed Type gabapentin 800 mg PO TID 01/07/18 01/07/18 History Exam Vital signs: Vital Signs 01/09/18 08:42 01/09/18 10:03 01/09/18 12:00 Temperature 97.0 F L Pulse Rate 65 Respiratory Rate 18 18 16 Blood Pressure 127/71 Pulse Oximetry 96 01/09/18 13:02 01/09/18 16:00 01/09/18 17:16 Temperature 97.4 F L Pulse Rate 55 L Respiratory Rate 18 17 18 Blood Pressure 125/74 Pulse Oximetry 96 01/09/18 20:00 01/09/18 21:39 01/09/18 22:43 Temperature 98.1 F Pulse Rate 65 Respiratory Rate 18 18 18 Blood Pressure 114/68 Pulse Oximetry 95 01/10/18 00:00 01/10/18 04:57 01/10/18 06:15 Temperature 96.8 F L Pulse Rate 53 L Respiratory Rate 18 16 16 Blood Pressure 116/69 Pulse Oximetry 95 Intake & Output 01/09/18 01/10/18 01/10/18 18:59 06:59 18:59 Intake Total 2574 / 2574 3114 / 3114 Output Total 1600 / 1600 1400 / 1400 Balance 974 / 974 1714 / 1714 Weight 65.7 kg Intake: IV 1614 / 1614 2614 / 2614 NS Inj 1,000 ML @ 100 mls/hr IV 1000 / 1000 2000 / 2000 .CONT .Q10H [facility]UCIA Rx#:[id number] Maxipime Inj 1,000 MG In NS Inj 100 / 100 100 / 100 100 ML @ 200 mls/hr IV.SIG Q12H LUCIA Rx#:[id number] Vancomycin Inj 1,400 MG In NS 514 / 514 514 / 514 Inj 500 ML @ 250 mls/hr IV.SIG Q12H LUCIA Rx#:[id number] Oral 960 / 960 500 / 500 Output: Urine 1600 / 1600 1400 / 1400 Other: Date of Last Bowel Movement 01/08/18 # Bowel Movements 1 - Constitutional no acute distress, cooperative - Routine HEENT Exam Head: Present: normocephalic, atraumatic Eye: Present: EOMI, PERRL ENT: Present: mucous membranes moist, nares patent - Routine Neck Exam Present: supple, full ROM. Absent: trauma - Routine Chest/Breast/Axilla Exam Chest wall: Absent: tenderness, mass, pacemaker - Routine Respiratory Exam Present: CTA bilaterally - Routine Cardiovascular Exam Present: RRR, S1, S2 - Routine Abdominal Exam Present: soft, normoactive bowel sounds. Absent: tenderness, distended, wound - Routine Extremities Exam Comments: Left arm with hard indurated area medial elbow area Rt arm with developing abscess on rt arm - Routine Neurological Exam Present: alert, oriented X3, CN II-XII intact, normal tone. Absent: sensory deficit, motor deficit Results - Labs CBC & Chem 7: 01/09/18 18:22 01/08/18 07:30 Labs: Laboratory Results - last 24 hr 01/09/18 01/09/18 01/10/18 18:22 18:22 02:50 WBC 5.7 RBC 4.49 L Hgb 13.3 Hct 39.7 MCV 88.4 MCH 29.5 MCHC 33.4 RDW 14.1 Plt Count 221 MPV 7.3 APTT 28.0 51.0 H D - Imaging Impressions Venous Doppler Study 01/09/18 00:00 CONCLUSION: 1. Occlusive thrombus in portions of the proximal cephalic vein and mid basilic vein. 2. Palpable abnormality corresponds to a heterogeneous masslike area measuring up to 4.5 x 1.7 x 1.2 cm which is heterogeneous and has some internal color flow. Is nonspecific but could represent an abscess. 3. Second focal complex collection right antecubital fossa measuring up to 1.4 x 1.4 x 0.7 cm. This may represent an abscess as well. Chest X-Ray 01/09/18 11:38 CONCLUSION: Assessment and Plan (1) Abscess of left arm Status: Acute Code(s): L02.414 - Cutaneous abscess of left upper limb (2) Abscess of right arm Status: Acute Code(s): L02.413 - Cutaneous abscess of right upper limb (3) Thrombosis of vein of upper extremity Status: Acute Code(s): I82.609 - Acute embolism and thrombosis of unspecified veins of unspecified upper extremity - Plan 1. Follow blood cultures 2. Patient is developing abscesses and may require I & D 3. Continue IV Vancomycin 4. Stop IV Cefepime 5. Start Unasyn 3 g IV q6hrs
--- NOTE | 2018-01-10 08:47 | P.PN ---
Physical Exam Vital signs: Vital Signs 01/09/18 10:03 01/09/18 12:00 01/09/18 13:02 Temperature 97.0 F L Pulse Rate 65 Respiratory Rate 18 16 18 Blood Pressure 127/71 Pulse Oximetry 96 01/09/18 16:00 01/09/18 17:16 01/09/18 20:00 Temperature 97.4 F L 98.1 F Pulse Rate 55 L 65 Respiratory Rate 17 18 18 Blood Pressure 125/74 114/68 Pulse Oximetry 96 95 01/09/18 21:39 01/09/18 22:43 01/10/18 00:00 Temperature 96.8 F L Pulse Rate 53 L Respiratory Rate 18 18 18 Blood Pressure 116/69 Pulse Oximetry 95 01/10/18 04:57 01/10/18 06:15 Temperature Pulse Rate Respiratory Rate 16 16 Blood Pressure Pulse Oximetry Intake & Output 01/09/18 01/10/18 01/10/18 18:59 06:59 18:59 Intake Total 2574 / 2574 3114 / 3114 Output Total 1600 / 1600 1400 / 1400 Balance 974 / 974 1714 / 1714 Weight 65.7 kg Intake: IV 1614 / 1614 2614 / 2614 NS Inj 1,000 ML @ 100 mls/hr IV 1000 / 1000 2000 / 2000 .CONT .Q10H LUCIA Rx#:[id number] Maxipime Inj 1,000 MG In NS Inj 100 / 100 100 / 100 100 ML @ 200 mls/hr IV.SIG Q12H L[facility] Rx#:[id number] Vancomycin Inj 1,400 MG In NS 514 / 514 514 / 514 Inj 500 ML @ 250 mls/hr IV.SIG Q12H LUCIA Rx#:[id number] Oral 960 / 960 500 / 500 Output: Urine 1600 / 1600 1400 / 1400 Other: Date of Last Bowel Movement 01/08/18 # Bowel Movements 1 Results - Labs CBC & Chem 7: 01/09/18 18:22 01/08/18 07:30 Laboratory Results - last 24 hr 01/09/18 01/09/18 01/10/18 18:22 18:22 02:50 WBC 5.7 RBC 4.49 L Hgb 13.3 Hct 39.7 MCV 88.4 MCH 29.5 MCHC 33.4 RDW 14.1 Plt Count 221 MPV 7.3 APTT 28.0 51.0 H D Microbiology 01/07/18 03:15 Blood - Peripheral Aerobic Blood Culture - Preliminary No growth in 2 days 01/07/18 03:15 Blood - Peripheral Anaerobic Blood Culture - Preliminary No growth in 2 days 01/07/18 03:10 Blood - Peripheral Aerobic Blood Culture - Preliminary No growth in 2 days 01/07/18 03:10 Blood - Peripheral Anaerobic Blood Culture - Preliminary No growth in 2 days - Imaging Impressions Venous Doppler Study 01/09/18 00:00 CONCLUSION: 1. Occlusive thrombus in portions of the proximal cephalic vein and mid basilic vein. 2. Palpable abnormality corresponds to a heterogeneous masslike area measuring up to 4.5 x 1.7 x 1.2 cm which is heterogeneous and has some internal color flow. Is nonspecific but could represent an abscess. 3. Second focal complex collection right antecubital fossa measuring up to 1.4 x 1.4 x 0.7 cm. This may represent an abscess as well. Chest X-Ray 01/09/18 11:38 CONCLUSION: Assessment and Plan - Assessment (1) Cellulitis of left elbow Code(s): L03.114 - Cellulitis of left upper limb Status: Acute - Plan Left elbow cellulitis New right upper extremity abscess New right AC suspected abscess -Unknown etiology at this time. Patient denies any extracurricular activities. Indicates that he got poked by aloe plant. -X-ray or left UE does not indicate any acute abnormality, ultrasound does indicate possible foreign body or partially obstructing clot in the basilic vein. -A left upper extremity CT was done and report reviewed, showing no indication of foreign body. It does show some possibility of abscess. -Spoke to hand surgeon who reviewed report of left UE, states that this will likely improve with IV antibiotics and since US does not indicate abscess will assess for improvement for now. -Patient continued on empirical antibiotics include vancomycin and cefepime. -Continue pain control. -Right UE US showing occlusive thrombus in cephalic and basilic vein as well as two possible abscesses. - Thrombophlebitis with partially obstructing thrombus in the left basilic vein New right upper extremity occlusive thrombus in the cephalic and basilic vein -Patient already on empirical antibiotics. Continue -Continue aspirin. DVT prevention -Subcutaneous heparin. Discharge Planning: Awaiting clinical improvement.
--- NOTE | 2018-01-10 09:11 | US ---
EXAM DATE: 01/10/2018 9:05 AM EDT AGE/SEX: 42 years / Male INDICATIONS: Elevated lab values. CLINICAL DATA: This is the patient's initial encounter. Patient reports that signs and symptoms have been present for 1 day and indicates a pain score of 1/10. MEDICAL/SURGICAL HISTORY: . Back injury. None. COMPARISON: No prior exams available for comparison. MEASUREMENTS: Liver:__ 20.1 cm. Common Bile Duct:___ 4mm. Right Kidney:___11.7 x 5.3 x 4.4 cm. Left Kidney:___11.6 x 4.4 x 5.1 cm. Spleen:___12.5 cm. FINDINGS: Liver: Normal echotexture without focal lesion or ductal dilatation. Portal Vein: Hepatopedal flow seen in portal vein. Common Duct: No intraluminal mass or stone visualized. Gallbladder: Gallbladder wall is thickened and there is small pericholecystic fluid. No sludge or s tones demonstrated. Negative sonographic Willams's sign. Pancreas: The visualized portions are within normal limits Right Kidney: Increased echotexture. No mass or hydronephrosis. Left Kidney: Normal echotexture and cortical thickness. No mass or hydronephrosis. Ascites: None Pleural Effusion: None Spleen: No focal lesion. Aorta: Non aneurysmal. IVC: Within normal limits Other: None. CONCLUSION: 1. Enlarged liver. 2. Nonspecific wall thickening and surrounding fluid of the gallbladder. Cholecystitis or findings s econdary to underlying liver disease or in the differential. Negative sonographic Willams's sign on to day's study. Electronically signed by: Wild Hammond MD 01/10/2018 9:10 AM EDT
[2018-01-10] MEDS: Ampicillin/Sulbactam Inj 3 GM in Sodium Chloride 0.9% Inj 100 ML IV.SIG SCH ×3 (09:21→21:58)
[2018-01-10] MEDS: Senna/Docusate Sodium 8.6/50 MG Tablet PO SCH ×2 (09:22→21:21)
[2018-01-10] MEDS: Heparin 10,000 UNITS/10 ML Vial (for IV use) IV.PUSH PRN ×2 (11:03→23:42)
[2018-01-10] MEDS: Heparin Drip 25,000 UNIT/250 ML BAG IV.CONT PRN ×2 (11:09→17:32)
[2018-01-10] MEDS ORDERED: Pharmacy Ordered Lab Info OTHER ONE (11:45)
[2018-01-10 12:18] LABS: Hepatitis A IgM Antibody Nonreactive (Nonreactive)
[2018-01-10 12:19] LABS: Hepatitits B Surface Antigen Nonreactive (Nonreactive)
--- NOTE | 2018-01-10 12:39 | P.PN ---
Subjective Interval history: Follow-up bilateral upper extremity cellulitis and thrombophlebitis. Patient seen and examined, lying in bed with no acute events overnight. Patient states that he has continued swelling on both bilateral arms. Mild improvement. Pain is still present. Patient is afebrile with no leukocytosis. Patient was placed on heparin drip per hematology recommendations. Infectious disease has seen patient with recommendations to change cefepime to Unasyn, continue IV vancomycin. Physical Exam Vital signs: Vital Signs 01/09/18 13:02 01/09/18 16:00 01/09/18 17:16 Temperature 97.4 F L Pulse Rate 55 L Respiratory Rate 18 17 18 Blood Pressure 125/74 Pulse Oximetry 96 01/09/18 20:00 01/09/18 21:39 01/09/18 22:43 Temperature 98.1 F Pulse Rate 65 Respiratory Rate 18 18 18 Blood Pressure 114/68 Pulse Oximetry 95 01/10/18 00:00 01/10/18 04:57 01/10/18 06:15 Temperature 96.8 F L Pulse Rate 53 L Respiratory Rate 18 16 16 Blood Pressure 116/69 Pulse Oximetry 95 01/10/18 07:00 01/10/18 08:00 01/10/18 09:35 Temperature 96.6 F L Pulse Rate 68 Respiratory Rate 18 17 18 Blood Pressure 126/69 Pulse Oximetry 96 01/10/18 09:53 01/10/18 10:05 Temperature Pulse Rate Respiratory Rate 18 18 Blood Pressure Pulse Oximetry Intake & Output 01/09/18 01/10/18 01/10/18 18:59 06:59 18:59 Intake Total 2574 / 2574 3114 / 3114 1150 / 1150 Output Total 1600 / 1600 1400 / 1400 Balance 974 / 974 1714 / 1714 1150 / 1150 Weight 65.7 kg Intake: IV 1614 / 1614 2614 / 2614 1150 / 1150 Heparin/D5W 25,000 U/250 mL 25, 150 / 150 000 unit In 250 ml @ Per Protocol IV.CONT TITRATE PRN Rx #:[id number] NS Inj 1,000 ML @ 100 mls/hr IV 1000 / 1000 2000 / 2000 1000 / 1000 .CONT .Q10H LUCIA Rx#:[id number] Maxipime Inj 1,000 MG In NS Inj 100 / 100 100 / 100 100 ML @ 200 mls/hr IV.SIG Q12H [facility]UC[facility] Rx#:[id number] Vancomycin Inj 1,400 MG In NS 514 / 514 514 / 514 Inj 500 ML @ 250 mls/hr IV.SIG Q12H LUCIA Rx#:[id number] Oral 960 / 960 500 / 500 Output: Urine 1600 / 1600 1400 / 1400 Other: Date of Last Bowel Movement 01/08/18 # Bowel Movements 1 Narrative: GENERAL: Well-developed, well-nourished patient in NAD. SKIN: Warm and dry. No rash. Left upper extremity cellulitis with mild erythema , swelling and induration. No fluctuance noted. Seems to have improved since admission. Right upper extremity erythema with firm indurated area. Generalized swelling of right upper extremity. Full range of motion intact to bilateral upper extremities. HEAD: Normocephalic. Atraumatic. EYES: Pupils equal and round. No scleral icterus. No injection or drainage. ENT: No nasal bleeding or discharge. Mucous membranes pink and moist. NECK: Supple. Trachea midline. CARDIOVASCULAR: Regular rate and rhythm. S1, S2 noted. No murmur appreciated. RESPIRATORY: No accessory muscle use. Clear to auscultation. Breath sounds equal bilaterally. GASTROINTESTINAL: Abdomen soft, non-tender, nondistended. Normoactive bowel sounds x4. MUSCULOSKELETAL: No obvious deformities. Extremities without clubbing, cyanosis , or edema. NEUROLOGICAL: Awake and alert. No obvious cranial nerve deficits. Motor grossly within normal limits. 5/5 muscle strength in bilateral upper and lower extremities. Normal speech. PSYCHIATRIC: Appropriate mood and affect; insight and judgment normal. Results - Labs CBC & Chem 7: 01/09/18 18:22 01/08/18 07:30 Laboratory Results - last 24 hr 01/09/18 01/09/18 01/10/18 18:22 18:22 02:50 WBC 5.7 RBC 4.49 L Hgb 13.3 Hct 39.7 MCV 88.4 MCH 29.5 MCHC 33.4 RDW 14.1 Plt Count 221 MPV 7.3 APTT 28.0 51.0 H D Hepatitis A IgM Ab Hep Bs Antigen Hep B Core IgM Ab Hep C IgG Ab 01/10/18 01/10/18 07:30 09:30 WBC RBC Hgb Hct MCV MCH MCHC RDW Plt Count MPV APTT 34.7 H D Hepatitis A IgM Ab Nonreactive Hep Bs Antigen Nonreactive Hep B Core IgM Ab Nonreactive Hep C IgG Ab Reactive H Microbiology 01/07/18 03:15 Blood - Peripheral Aerobic Blood Culture - Preliminary No growth in 3 days 01/07/18 03:15 Blood - Peripheral Anaerobic Blood Culture - Preliminary No growth in 3 days 01/07/18 03:10 Blood - Peripheral Aerobic Blood Culture - Preliminary No growth in 3 days 01/07/18 03:10 Blood - Peripheral Anaerobic Blood Culture - Preliminary No growth in 3 days - Imaging Impressions Chest X-Ray 01/09/18 11:38 CONCLUSION: Abdomen Ultrasound 01/10/18 00:00 CONCLUSION: 1. Enlarged liver. 2. Nonspecific wall thickening and surrounding fluid of the gallbladder. Cholecystitis or findings secondary to underlying liver disease or in the differential. Negative sonographic Willams's sign on today's study. Assessment and Plan - Assessment (1) Cellulitis of left elbow Code(s): L03.114 - Cellulitis of left upper limb Status: Acute - Plan Left elbow cellulitis Right upper extremity and AC suspected abscess -Unknown etiology at this time. Patient denies any extracurricular activities. Indicates that he got poked by aloe plant. -X-ray or left UE does not indicate any acute abnormality, left ultrasound does indicate possible foreign body or partially obstructing clot in the basilic vein. -A left upper extremity CT was done and report reviewed, showing no indication of foreign body. It does show some possibility of abscess. -Spoke to hand surgeon who reviewed report of left UE, states that this will likely improve with IV antibiotics and since US does not indicate abscess will assess for improvement for now. -Patient continued on empirical antibiotics including IV vancomycin, ID added IV Unasyn -Right UE US showing occlusive thrombus in cephalic and basilic vein as well as two possible abscesses. -Hematology consulted, added heparin drip. Patient will need anticoagulation for 30 days when discharged. -ID consulted as well for multiple abscesses despite IV antibiotics, appreciate input recommendations, continue vancomycin and switched to Unasyn -General surgery consulted possible need for I&D, appreciate input recommendations. Thrombophlebitis with partially obstructing thrombus in the left basilic vein New right upper extremity occlusive thrombus in the cephalic and basilic vein -Patient already on empirical antibiotics. Blood cultures negative to date. -Hematology consulted. Appreciate input recommendations. Continue heparin drip. Elevated LFTs -Unknown etiology at this time. -Abdominal ultrasound ordered and pending. Will follow. -Hepatitis panel ordered and pending. -Patient denies any alcohol abuse. DVT prevention -Heparin drip. Discharge Planning: Awaiting clinical improvement. General surgery consulted.
--- NOTE | 2018-01-10 21:04 | P.CONGS ---
[facility] Gen Surgery Consult Note Consult date: 01/10/18 Narrative: 42 yo M with possible abscess medial left elbow and multiple on RUE. He first noticed swelling of the left elbow about 4 days ago. Venous doppler showed edema in SQ tissues and possible foreign body vs chronic thrombus in basilic vein. Elbow CT showed cellulitis, small abscess, and cephalic vein thrombus without foreign body. The patient has been treated with IV antibiotics since admission. He developed swelling and pain of the RUE and venous doppler showed occlusive thrombus in cephalic and basilic veins as well as area of edema in right upper arm and smaller area in AC fossa. He has been started on IV heparin gtt per Dr. Hough of hem/onc. ID has continued vancomycin and initiated unasyn. 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 He has moderate tenderness with extension of left elbow. Review of Systems All other systems reviewed negative except as stated in [facility] - History History Provided By: Patient - Medical History Medical History: Medical History (Last Reviewed 01/07/18 @ 12:06 by BRUCE Laughlin) History of back injury - Surgical History Surgical History: Surgical History (Last Updated 01/07/18 @ 12:06 by BRUCE Laughlin) No history of previous surgery - Family History Family History: Family History (Last Updated 01/07/18 @ 12:06 by BRUCE Laughlin) Other No pertinent family history - Tobacco History Second Hand Smoke Exposure: No Tobacco Use In Past 30 Days: Yes Smoking Status: Current every day smoker Tobacco Type: Cigarettes - Alcohol History How Often Do You Have a Drink Containing Alcohol: Never - Substance Use History Substance History: No History of Abuse - Travel History Recent Travel in the [place] Within the Last 8 Weeks: No Recent Travel Out of the Country Within the Last 8 Weeks: No - Immunization History Tetanus Immunization: <5 Years Hx Influenza Vaccine This Season: No Medications and Allergies Active Medications: Active Medications Acetaminophen (Tylenol) 650 mg PO Q4H PRN PRN Reason: Temp > 100.4 Hydrocodone Bitart/Acetaminophen ([place] 10/325) 1 tab PO Q4H PRN PRN Reason: PAIN 6-10 Last Admin: 01/10/18 17:46 Dose: 1 tab Hydrocodone Bitart/Acetaminophen ([place] 5/325) 1 tab PO Q4H PRN PRN Reason: PAIN 3-5 Al Hydroxide/Mg Hydroxide (Milk Of Magnesia Liq) 30 ml PO Q12H PRN PRN Reason: Mild Constipation Aspirin (Ecotrin) 325 mg PO DAILY [facility] Last Admin: 01/10/18 09:23 Dose: 325 mg Bisacodyl (Dulcolax Supp) 10 mg RECTAL DAILY PRN PRN Reason: SEVERE CONSITIPATION Heparin Sodium (Porcine) (Heparin Inj) 2,500 units IV.PUSH UNSCH PRN PRN Reason: aPTT 25-39 Last Admin: 01/10/18 11:03 Dose: 2,500 units Heparin Sodium (Porcine) (Heparin Inj) 5,000 units IV.PUSH UNSCH PRN PRN Reason: aPTT < 25 Sodium Chloride (Ns Inj) 1,000 mls @ 100 mls/hr IV.CONT .Q10H [facility] Last Admin: 01/10/18 12:21 Dose: 100 mls/hr Pharmacy Profile Note (Vancomycin Consult Pharmacy) 0 mls @ 0 mls/hr OTHER UNSCH [facility] Vancomycin HCl 1,400 mg/ (Sodium Chloride) 514 mls @ 250 mls/hr IV.SIG Q12H [facility] Last Infusion: 01/10/18 14:23 Dose: Infused Heparin Sodium/Dextrose (Heparin/D5w 25,000 U/250 Ml) 25,000 unit in 250 mls @ 0 mls/hr IV.CONT TITRATE PRN; Protocol PRN Reason: Per Protocol Last Admin: 01/10/18 17:32 Dose: 1,200 units/hr, 12 mls/hr Ampicillin Sodium/Sulbactam (Sodium 3 gm/ Sodium Chloride) 100 mls @ 200 mls/ hr IV.SIG Q6H [facility] Last Infusion: 01/10/18 16:35 Dose: Infused Lactulose (Lactulose Liq) 30 ml PO DAILY PRN PRN Reason: SEVERE CONSITIPATION Ondansetron HCl (Zofran Inj) 4 mg IV.PUSH Q6H PRN PRN Reason: NAUSEA OR VOMITING Senna/Docusate Sodium (Faina-Colace) 1 tab PO BID [facility] Last Admin: 01/10/18 09:22 Dose: Not Given Sennosides (Senokot) 17.2 mg PO Q12H PRN PRN Reason: Moderate Constipation Sodium Chloride (Ns Flush) 2 ml IV.FLUSH PRN PRN PRN Reason: FLUSH AFTER USING IV ACCESS Temazepam (Restoril) 15 mg PO HS PRN PRN Reason: INSOMNIA Allergies Allergy/AdvReac Type Severity Reaction Status Date / Time morphine AdvReac Unknown N/V Verified 01/23/18 14:23 *MDRO Multi-Drug Resistant AdvReac Unknown Abdominal Uncoded 01/23/18 14:23 Organism Pain Exam Vital signs: Vital Signs 01/09/18 21:39 01/09/18 22:43 01/10/18 00:00 Temperature 96.8 F L Pulse Rate 53 L Respiratory Rate 18 18 18 Blood Pressure 116/69 Pulse Oximetry 95 01/10/18 04:57 01/10/18 06:15 01/10/18 07:00 Temperature Pulse Rate Respiratory Rate 16 16 18 Blood Pressure Pulse Oximetry 01/10/18 08:00 01/10/18 09:35 01/10/18 09:53 Temperature 96.6 F L Pulse Rate 68 Respiratory Rate 17 18 18 Blood Pressure 126/69 Pulse Oximetry 96 01/10/18 10:05 01/10/18 12:00 01/10/18 13:38 Temperature 97.0 F L Pulse Rate 74 Respiratory Rate 18 17 18 Blood Pressure 124/68 Pulse Oximetry 98 01/10/18 14:08 01/10/18 16:00 01/10/18 17:46 Temperature 96.1 F L Pulse Rate 64 Respiratory Rate 18 16 18 Blood Pressure 124/82 Pulse Oximetry 97 01/10/18 18:16 01/10/18 20:00 Temperature 96.1 F L Pulse Rate 58 L Respiratory Rate 18 16 Blood Pressure 138/83 Pulse Oximetry 95 Intake & Output 01/10/18 01/10/18 01/11/18 06:59 18:59 06:59 Intake Total 3114 / 3114 2714 / 2714 Output Total 1400 / 1400 1000 / 1000 Balance 1714 / 1714 1714 / 1714 Weight 65.7 kg Intake: IV 2614 / 2614 2114 / 2114 Heparin/D5W 25,000 U/250 mL 25, 400 / 400 000 unit In 250 ml @ Per Protocol IV.CONT TITRATE PRN Rx #:[id number] NS Inj 1,000 ML @ 100 mls/hr IV 2000 / 2000 1000 / 1000 .CONT .Q10H LUCIA Rx#:[id number] Unasyn Inj 3 GM In NS Inj 100 200 / 200 ML @ 200 mls/hr IV.SIG Q6H [facility]UCIA Rx#:[id number] Maxipime Inj 1,000 MG In NS Inj 100 / 100 100 ML @ 200 mls/hr IV.SIG Q12H [facility]UCIA Rx#:[id number] Vancomycin Inj 1,400 MG In NS 514 / 514 514 / 514 Inj 500 ML @ 250 mls/hr IV.SIG Q12H LUCIA Rx#:[id number] Oral 500 / 500 600 / 600 Output: Urine 1400 / 1400 1000 / 1000 Narrative: GENERAL: Awake and alert. No acute distress. Cooperative. HEAD: Normocephalic. Atraumatic. EYES: Pupils equal round and reactive to light bilaterally. No scleral icterus. ENT: Moist oral mucosa. NECK: Trachea midline. CHEST: Nonlabored breathing. No respiratory distress. CARDIOVASCULAR: Regular rate and rhythm. EXTREMITIES: Left upper ext medial elbow with 8x6cm area of induration and erythema smaller area of fluctuance and moderate pain with extension; RUE 4x2 cm indurated area minimal erythema proximal bicep and 2x1cm indurated area AC fossa SKIN: Warm, dry, nonjaundiced. Results - Labs 01/09/18 18:22 01/08/18 07:30 Abnormal lab results 01/10/18 01/10/18 01/10/18 Range/Units 02:50 07:30 09:30 APTT 51.0 H D (24.3-30.1) sec Vancomycin Trough 12.6 H (5.0-10.0) mcg/mL Hep C IgG Ab Reactive H (Nonreactive) 01/10/18 01/10/18 Range/Units 09:30 16:35 APTT 34.7 H D 42.5 H D (24.3-30.1) sec Vancomycin Trough (5.0-10.0) mcg/mL Hep C IgG Ab (Nonreactive) All other labs normal. Assessment and Plan - Plan 42 yo M with multiple soft tissue infections associated with thrombophlebitis. Continue IV antibiotics as per ID. Left elbow infection/abscess will likely require incision and drainage. I would not perform the operation due to location anatomically as well as irregular presentation and associated thrombophlebitis and will consult hand surgery for evaluation.
[2018-01-11] MEDS: Sod Chloride 0.9% Inj 1,000 ML IV.CONT SCH ×3 (01:01→20:22)
[2018-01-11] MEDS: Ampicillin/Sulbactam Inj 3 GM in Sodium Chloride 0.9% Inj 100 ML IV.SIG SCH ×4 (02:02→20:23)
[2018-01-11] MEDS: Senna/Docusate Sodium 8.6/50 MG Tablet PO SCH ×2 (09:09→20:22)
--- NOTE | 2018-01-11 09:24 | P.PN ---
Subjective Interval history: Follow-up bilateral upper extremity cellulitis as well as abscess. Patient seen and examined, lying in bed comfortably no apparent distress. Patient states that he feels improved regarding his left upper arm pain as well as swelling. Upon assessment today it does look improved after starting IV Unasyn. Spoke to Dr. Connell, general surgery who suggests monitoring no operative management at this time. Also spoke to Dr. Kirk, who has assessed patient this morning and does not feel the need to operate. We will continue IV antibiotics. ID and hematology following. Physical Exam Vital signs: Vital Signs 01/10/18 09:35 01/10/18 09:53 01/10/18 10:05 Temperature Pulse Rate Respiratory Rate 18 18 18 Blood Pressure Pulse Oximetry 01/10/18 12:00 01/10/18 13:38 01/10/18 14:08 Temperature 97.0 F L Pulse Rate 74 Respiratory Rate 17 18 18 Blood Pressure 124/68 Pulse Oximetry 98 01/10/18 16:00 01/10/18 17:46 01/10/18 18:16 Temperature 96.1 F L Pulse Rate 64 Respiratory Rate 16 18 18 Blood Pressure 124/82 Pulse Oximetry 97 01/10/18 20:00 01/11/18 00:00 01/11/18 08:00 Temperature 96.1 F L 96.8 F L 97.8 F Pulse Rate 58 L 61 74 Respiratory Rate 16 16 18 Blood Pressure 138/83 130/81 113/73 Pulse Oximetry 95 98 97 Intake & Output 01/10/18 01/11/18 01/11/18 18:59 06:59 18:59 Intake Total 2714 / 2714 1714 / 1714 1000 / 1000 Output Total 1000 / 1000 Balance 1714 / 1714 1714 / 1714 1000 / 1000 Weight 66.1 kg Intake: IV 2114 / 2114 1714 / 1714 1000 / 1000 Heparin/D5W 25,000 U/250 mL 25, 400 / 400 000 unit In 250 ml @ Per Protocol IV.CONT TITRATE PRN Rx #:[id number] NS Inj 1,000 ML @ 100 mls/hr IV 1000 / 1000 1000 / 1000 1000 / 1000 .CONT .Q10H LUCIA Rx#:[id number] Unasyn Inj 3 GM In NS Inj 100 200 / 200 200 / 200 ML @ 200 mls/hr IV.SIG Q6H LUCIA Rx#:[id number] Vancomycin Inj 1,400 MG In NS 514 / 514 514 / 514 Inj 500 ML @ 250 mls/hr IV.SIG Q12H LUCIA Rx#:[id number] Oral 600 / 600 Output: Urine 1000 / 1000 Other: Date of Last Bowel Movement 01/08/18 Narrative: GENERAL: Well-developed, well-nourished patient in NAD. SKIN: Warm and dry. No rash. Left upper extremity cellulitis with mild erythema , swelling and induration. No fluctuance noted. Seems to have improved since admission. Right upper extremity erythema with firm indurated area, erythema improving. Generalized swelling of right upper extremity. Full range of motion intact to bilateral upper extremities. HEAD: Normocephalic. Atraumatic. EYES: Pupils equal and round. No scleral icterus. No injection or drainage. ENT: No nasal bleeding or discharge. Mucous membranes pink and moist. NECK: Supple. Trachea midline. CARDIOVASCULAR: Regular rate and rhythm. S1, S2 noted. No murmur appreciated. RESPIRATORY: No accessory muscle use. Clear to auscultation. Breath sounds equal bilaterally. GASTROINTESTINAL: Abdomen soft, non-tender, nondistended. Normoactive bowel sounds x4. MUSCULOSKELETAL: No obvious deformities. Extremities without clubbing, cyanosis , or edema. NEUROLOGICAL: Awake and alert. No obvious cranial nerve deficits. Motor grossly within normal limits. 5/5 muscle strength in bilateral upper and lower extremities. Normal speech. PSYCHIATRIC: Appropriate mood and affect; insight and judgment normal. Results - Labs CBC & Chem 7: 01/09/18 18:22 01/08/18 07:30 Laboratory Results - last 24 hr 01/10/18 01/10/18 01/10/18 07:30 09:30 09:30 APTT 34.7 H D Vancomycin Trough 12.6 H Hepatitis A IgM Ab Nonreactive Hep Bs Antigen Nonreactive Hep B Core IgM Ab Nonreactive Hep C IgG Ab Reactive H 01/10/18 01/10/18 01/11/18 16:35 22:30 06:00 APTT 42.5 H D 37.7 H 46.4 H D Vancomycin Trough Hepatitis A IgM Ab Hep Bs Antigen Hep B Core IgM Ab Hep C IgG Ab Microbiology 01/07/18 03:15 Blood - Peripheral Aerobic Blood Culture - Preliminary No growth in 3 days 01/07/18 03:15 Blood - Peripheral Anaerobic Blood Culture - Preliminary No growth in 3 days 01/07/18 03:10 Blood - Peripheral Aerobic Blood Culture - Preliminary No growth in 3 days 01/07/18 03:10 Blood - Peripheral Anaerobic Blood Culture - Preliminary No growth in 3 days Assessment and Plan - Assessment (1) Cellulitis of left elbow Code(s): L03.114 - Cellulitis of left upper limb Status: Acute - Plan Left elbow cellulitis with questionable abscess Right upper extremity and AC with suspected abscess Thrombophlebitis with partially obstructing thrombus in the left basilic vein New right upper extremity occlusive thrombus in the cephalic and basilic vein -Unknown etiology at this time. Patient denies any extracurricular activities. Indicates that he got poked by aloe plant. -X-ray or left UE does not indicate any acute abnormality, left ultrasound does indicate possible foreign body or partially obstructing clot in the basilic vein. -A left upper extremity CT was done and report reviewed, showing no indication of foreign body. It does show some possibility of abscess. -Spoke to hand surgeon on presentation who reviewed report of left UE, deferred operative management at the time. -Patient was continued on empirical antibiotics including IV vancomycin, and IV cefepime. ID has discontinued the IV cefepime and added IV Unasyn. -Right UE US done on 01/09/18 showing occlusive thrombus in cephalic and basilic vein as well as two possible abscesses. -Hematology consulted, added heparin drip. Patient will need anticoagulation for 30 days when discharged. -ID consulted as well for multiple abscesses despite IV antibiotics, appreciate input recommendations, continue vancomycin and Unasyn. Nocardia as part of the differential. -Continue to follow blood cultures, negative to date. -General surgery consulted 01/10/18 and examined patient, deferred to hand surgeon for possible I&D of left abscess. -Hand surgeon, Dr. Kirk, at bedside this morning, with no need for operative management at this time. Will continue to monitor and IV antibiotics. Elevated LFTs -Hep C reactive. Will add viral load. -Arranged for outpatient referral for Hep C follow up. -Abdominal ultrasound ordered showing some fluid around gallbladder. Patient does not have any symptoms. -Patient denies any alcohol abuse. DVT prevention -Heparin drip. Discharge Planning: Awaiting clinical improvement, final recs from ID as well as hematology recs for anticoagulation on DC.
[2018-01-11] MEDS: Vancomycin Inj 1,400 MG in Sodium Chlor 0.9% Inj 500 ML IV.SIG SCH (14:02)
[2018-01-11] MEDS: Heparin Drip 25,000 UNIT/250 ML BAG IV.CONT PRN (14:04)
--- NOTE | 2018-01-11 15:52 | MB ---
cc: Ashanti Kirk MD DATE: 01/11/2018 REQUESTING PHYSICIAN: Beck Connell MD REASON FOR CONSULTATION: Possible abscess of left antecubital fossa. HISTORY OF PRESENT ILLNESS: The patient is a 42-year-old male who was admitted on 01/07/2018. At that time it was noted that he had pain and swelling in the area of his left elbow. The patient indicates that he had gotten poked with an aloe plant thorn and developed the swelling. During the admission, the patient developed what appeared to be thrombophlebitis, for which he is now being treated. Ultrasound of the right upper extremity was suggestive of not only the thrombophlebitis, but also a possible abscess. The left upper extremity was negative for abscess. The patient's condition has remained relatively stable. His white count on admission was 9.2 with no shift, and on 01/09/2018 it was 5.7. Consultation is requested regarding evaluation and treatment of the patient. The venous Doppler study of the left upper extremity on 01/07/2018 was no evidence for acute thrombus, but there was some surrounding edema with a possible foreign body versus a nonocclusive thrombus. The report indicated that within the basilic vein in the antecubital region, an intravascular filling defect was noted, but did not have the typical appearance of an acute thrombus. It was felt to be either a foreign body or chronic nonocclusive thrombus. There was no evidence of abscess noted. An ultrasound venous Doppler study on 01/09/2018 of the right upper extremity concluded that there was an occlusive thrombus in portions of the proximal cephalic vein in mid basilic vein with a heterogenous mass-like area which was felt to be nonspecific, but could represent an abscess. There was a second one in the right antecubital fossa, which also was felt to possibly represent an abscess as well. Today, the patient notes that both arms are feeling a lot better. The left side is the one that was bothering him. This is much less hard according to the patient, and he has better range of motion, and the tenderness has diminished significantly. There is some redness in the area. He has no symptoms on the right side. REVIEW OF SYSTEMS: Positive for the change in the skin color, but otherwise negative in 10 systems. The patient denies high blood pressure, diabetes, heart disease, kidney disease, liver disease or diseases of infectious etiology. He has a history of back injury. PAST SURGICAL HISTORY: Denied. FAMILY HISTORY: Noncontributory. SOCIAL HISTORY: The patient is an everyday smoker. He denies substance abuse. PHYSICAL EXAMINATION: GENERAL: The patient is lying comfortably in bed. HEENT: His extraocular muscles are intact. His pupils are equal, round and reactive to light. His mouth is clear. NECK: Supple, without masses. LUNGS: Clear. HEART: Has a regular rate and rhythm. EXTREMITIES: Examination of his upper extremities reveals some redness on the medial aspect of the elbow area measuring approximately 5 cm x 3 cm in greatest dimension. The area is nontender, although there does appear to be some superficial swelling. His range of motion is adequate. Blood supply is adequate. I do not appreciate any fluctuance. IMPRESSION: The patient appears to have a process. Has swelling, redness in the left upper extremity which may be related to a foreign body. There is no evidence of significant infection or abscess formation. PLAN: I would continue with the hematologic workup and treat accordingly. Please re-consult if his clinical condition changes. Ashanti Kirk MD LHB/kb , 02:06 PM , 02:15 PM
--- NOTE | 2018-01-11 17:55 | P.PNONC ---
Subjective Interval history: Can I go home with antibiotics. Objective Vital Signs/Intake & Output: Vital Signs 01/10/18 17:46 01/10/18 18:16 01/10/18 20:00 Temperature 96.1 F L Pulse Rate 58 L Respiratory Rate 18 18 16 Blood Pressure 138/83 Pulse Oximetry 95 01/11/18 00:00 01/11/18 08:00 01/11/18 12:00 Temperature 96.8 F L 97.8 F 96.1 F L Pulse Rate 61 74 68 Respiratory Rate 16 18 18 Blood Pressure 130/81 113/73 136/82 Pulse Oximetry 98 97 96 Intake & Output 01/10/18 01/11/18 01/11/18 18:59 06:59 18:59 Intake Total 2714 / 2714 1713 / 1713 Output Total 1000 / 1000 1000 / 1000 Balance 1714 / 1714 1713 / 1713 964 / 964 Weight 66.1 kg Intake: IV 2114 / 2114 1713 / 4 1963 Heparin/D5W 25,000 U/250 mL 25, 400 / 400 250 / 250 000 unit In 250 ml @ Per Protocol IV.CONT TITRATE PRN Rx #:[id number] NS Inj 1,000 ML @ 100 mls/hr IV 1000 / 1000 1000 / 1000 1000 / 1000 .CONT .Q10H LUCIA Rx#:[id number] Unasyn Inj 3 GM In NS Inj 100 200 / 200 200 / 200 200 / 200 ML @ 200 mls/hr IV.SIG Q6H LUCIA Rx#:[id number] Vancomycin Inj 1,400 MG In NS 514 / 514 514 / 514 514 / 514 Inj 500 ML @ 250 mls/hr IV.SIG Q12H LUCIA Rx#:[id number] Oral 600 / 600 Output: Urine 1000 / 1000 1000 / 1000 Other: Date of Last Bowel Movement 01/08/18 # Bowel Movements 1 Result Diagrams: 01/09/18 18:22 01/08/18 07:30 Laboratory Results: Laboratory Results - last 24 hr 01/10/18 01/11/18 01/11/18 22:30 06:00 11:29 APTT 37.7 H 46.4 H D 42.1 H Culture Results: Microbiology 01/07/18 03:15 Aerobic Blood Culture - Preliminary Blood - Peripheral No growth in 4 days Anaerobic Blood Culture - Preliminary No growth in 4 days 01/07/18 03:10 Aerobic Blood Culture - Preliminary Blood - Peripheral No growth in 4 days Anaerobic Blood Culture - Preliminary No growth in 4 days Medications: Active Medications Generic Name Dose Route Start Last Admin Trade Name Freq PRN Reason Stop Dose Admin Hydrocodone Bitart/Acetaminophen 1 tab 01/07/18 04:36 01/11/18 15:02 [place] 10/325 PO 1 tab Q4H PRN Administration PAIN 6-10 Aspirin 325 mg 01/07/18 12:30 01/11/18 09:07 Ecotrin PO 325 mg DAILY LUCIA Administration Heparin Sodium (Porcine) 2,500 units 01/10/18 00:20 01/10/18 23:42 Heparin Inj IV.PUSH 2,500 units UNSCH PRN Administration aPTT 25-39 Sodium Chloride 1,000 mls @ 100 mls/hr 01/07/18 04:45 01/11/18 09:06 Ns Inj IV.CONT 100 mls/hr .Q10H LUCIA Administration Vancomycin HCl 1,400 mg/ 514 mls @ 250 mls/hr 01/09/18 00:00 01/11/18 16:52 Sodium Chloride IV.SIG Infused Q12H LUCIA Infusion Heparin Sodium/Dextrose 25,000 unit in 250 mls @ 0 mls/hr 01/09/18 18:19 03/21 14:04 Heparin/D5w 25,000 U/250 Ml IV.CONT 1,300 units/hr TITRATE PRN 13 mls/hr Per Protocol Administration Protocol Per Protocol Ampicillin Sodium/Sulbactam 100 mls @ 200 mls/hr 01/10/18 09:00 01/11/18 17: 33 Sodium 3 gm/ Sodium Chloride IV.SIG Infused Q6H LUCIA Infusion Senna/Docusate Sodium 1 tab 01/07/18 09:00 01/11/18 09:09 Faina-Colace PO Not Given BID LUCIA Objective Remarks: GENERAL: Well-nourished, well-developed patient. SKIN: Warm and dry. HEAD: Normocephalic. EYES: No scleral icterus. No injection or drainage. NECK: Supple, trachea midline. No JVD or lymphadenopathy. LYMPHATIC: No adenopathy. CARDIOVASCULAR: Regular rate and rhythm without murmurs. RESPIRATORY: Breath sounds equal bilaterally. No accessory muscle use. GASTROINTESTINAL: Abdomen soft, non-tender, nondistended. EXTREMITIES: No cyanosis, or edema. MUSCULOSKELETAL: Left medial epicondyle with erythematous fluctuant area approximately 5 cm. Right arm and forearm with multiple erythematous nodules, hard. NEUROLOGICAL: No obvious focal deficit. Awake, alert, and oriented x3. PSYCHIATRIC: Appropriate mood and affect; insight and judgment normal. Assessment/Plan (1) Thrombosis of vein of upper extremity Code(s): I82.609 - Acute embolism and thrombosis of unspecified veins of unspecified upper extremity Status: Acute - Plan Noted patient was on unfractionated heparin last 48 hours. He reports improvement in the swelling. The medial left arm was hard when examined by hand surgeon. He reports that the fluctuation became more evident towards the afternoon right before my examination. We discussed continued treatment for the upper extremity thromboses. Left upper extremity with basilic vein thrombus. Right upper extremity with occlusive thrombus in portions of the proximal proximal cephalic vein and mid basilic vein. We will switch him from the unfractionated heparin to a low molecular weight heparin. We will monitor for continued response in the decrease in the swelling. Upon discharge she can be switched to an oral anticoagulant. global sales manager will be consulted for samples of Eliquis or Xarelto. Noted is the hand surgery recommendation of continued management without surgical intervention. We will continue to monitor the erythematous, edematous , fluctuant area in the medial aspect of the left arm. In the meantime antibiotic therapy continues. Plan discussed with primary team.
[2018-01-11] MEDS: Enoxaparin Inj 60 MG/0.6 ML Syringe SQ SCH (20:23)
[2018-01-12] MEDS: Vancomycin Inj 1,400 MG in Sodium Chlor 0.9% Inj 500 ML IV.SIG SCH ×2 (00:02→12:41)
[2018-01-12] MEDS: Ampicillin/Sulbactam Inj 3 GM in Sodium Chloride 0.9% Inj 100 ML IV.SIG SCH ×2 (02:44→08:16)
[2018-01-12] MEDS: Sod Chloride 0.9% Inj 1,000 ML IV.CONT SCH (03:45)
[2018-01-12] MEDS: Enoxaparin Inj 60 MG/0.6 ML Syringe SQ SCH (08:16)
[2018-01-12] MEDS: Senna/Docusate Sodium 8.6/50 MG Tablet PO SCH (08:17)
--- NOTE | 2018-01-12 12:20 | P.DS ---
Date of admission: 01/09/18 10:08 Primary care physician: No Primary Care Physician Attending physician on discharge: Deannajoshua De La Rosa Anticipated date of discharge: 01/12/18 Brief History from admission: 42-year-old male with no chronic medical illnesses who presented to the hospital because of pain and swelling of his left elbow. Patient states that she is in normal state of health until 2 days ago when he was at work in the yard. He states that he got poked with a aloe plant thorn and since then he started developing worsening swelling, pain at the medial aspect of his left elbow. He got to the point where he cannot bend his elbow so he came to emergency department for evaluation. Patient denied any fever, chills, open wound, exudates. Patient had workup done emergency department and x-ray did not indicate any acute abnormality. Ultrasound showed possible nonocclusive thrombus in the basilic vein versus foreign body. Patient was admitted to the hospital with empirical antibiotics for further evaluation and workup DS: Diagnosis - Discharge Diagnosis (1) Cellulitis of left elbow Status: Acute DS: Medications - Discharge Medications Prescriptions: ampicillin 500 mg PO QID #84 cap hydrocodone-acetaminophen [Ider] 1 tab PO Q6H PRN #12 tab PRN Reason: Acute Pain rivaroxaban [Xarelto] 15 mg PO PER PKG DIR #51 dosepak sulfamethoxazole-trimethoprim [Bactrim DS] 1 tab PO BID #42 tab DS: Summary Hospital Course: 42-year-old male who originally presented the hospital because of the left arm swelling, pain. 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 Patient had workup done with x-ray which did not indicate any abnormality, further neurological studies were performed, with CT scan w which indicated cellulitis with small abscesses. There was thrombus noted in the cephalic vein. Multiple venous Dopplers were performed of the bilateral upper extremities which also shows other occlusive thrombus noted in cephalic vein of the right arm and mid cephalic vein of the right arm. Nonocclusive thrombus noted in the left basilic vein. Venereal Disease Investigator was consulted and recommended Lovenox for anticoagulation and recommended Eliquis/Xarelto for at least 30 days upon discharge. In reference to the patient's abscess/cellulitis. Patient was continued on vancomycin and did not improve that well. Infectious disease was consulted who changed over to Unasyn. Due to the ultrasounds and CT scans showing small abscesses multiple surgeons were consulted to include general surgery and hand surgery. Both of which indicates that since the patient is improving, surgical intervention should be avoided at this time. Patient is improving on a daily basis. Patient has improved significantly since his admission. He is very eager to go home. Case was discussed with infectious disease who indicated that the patient should be on amoxicillin/ Bactrim for at least 3 weeks. This was discussed with the patient. Patient is agreement with discharge at this time. We will plan discharge accordingly. - Time Spent with Patient Total time spent providing and/or coordinating discharge services: Greater than 30 minutes - Quality: VTE Deep Vein Thrombosis/Pulmonary Embolism Present on Admission: No Exam Vital signs: Vital Signs 01/11/18 16:00 01/11/18 20:00 01/12/18 00:00 Temperature 96.1 F L 96.9 F L 97.4 F L Pulse Rate 68 52 L Respiratory Rate 18 20 20 Blood Pressure 136/82 127/66 127/60 Pulse Oximetry 96 96 96 01/12/18 07:51 01/12/18 11:24 Temperature 96.7 F L 96.8 F L Pulse Rate 50 L 54 L Respiratory Rate 20 20 Blood Pressure 121/64 118/56 L Pulse Oximetry 96 96 Intake & Output 01/11/18 01/12/18 01/12/18 18:59 06:59 18:59 Intake Total 2013 3434 / 3434 100 / 100 Output Total 1000 / 1000 500 / 500 Balance 1014 / 1014 3434 / 3434 -400 / -400 Weight 66.2 kg Intake: IV 2013 2714 / 2714 100 / 100 Heparin/D5W 25,000 U/250 mL 25, 300 / 300 000 unit In 250 ml @ Per Protocol IV.CONT TITRATE PRN Rx #:[id number] NS Inj 1,000 ML @ 100 mls/hr IV 1000 / 1000 1999 / 1999 .CONT .Q10H LUCIA Rx#:[id number] Unasyn Inj 3 GM In NS Inj 100 200 / 200 200 / 200 100 / 100 ML @ 200 mls/hr IV.SIG Q6H LUCIA Rx#:[id number] Vancomycin Inj 1,400 MG In NS 514 / 514 514 / 514 Inj 500 ML @ 250 mls/hr IV.SIG Q12H LUCIA Rx#:[id number] Oral 720 / 720 Output: Urine 1000 / 1000 500 / 500 Other: # Voids 2 Date of Last Bowel Movement 01/08/18 # Bowel Movements 1 Narrative: GENERAL: Well-developed, well-nourished, in no acute distress. alert and orientated HEENT: Head is normocephalic without any lesions or masses noted. Facial features are symmetric. Eyes: Extraocular muscles are intact. Conjunctivae were clear. NECK: Supple without any masses. Trachea midline no deviation. No JVD, CARDIAC: Regular rhythm, regular rate. S1/S2 are heard. No murmurs gallops or rubs. LUNGS: Clear to auscultation bilaterally. No wheeze, rhonchi or rales. No use of accessory muscles on inspiration or expiration. ABDOMEN: Soft, nontender. Nondistended. Bowel sounds heard in all 4 quadrants. No organomegaly or masses. Negative rebound, negative guarding EXTREMITIES: No edema, pulses are equal bilaterally. No cyanosis or clubbing NEUROLOGY: Mood and affect appear appropriate. Cranial nerves II through XII grossly intact. Moving all extremities, speech clear RIGHT UPPER EXTREMITY: Patient still has some mild edema noted over the medial aspect of his elbow. There is just mild erythema. It is significantly improved since last month seen it. No fluctuant area was appreciated. Results Procedures completed during hospitalization: None Labs on day of discharge: Labs from last 24 hours 01/11/18 01/11/18 18:30 18:30 APTT 36.4 H HCV RNA (PCR) IUs/ml Pending HCV RNA PCR log IUs/ml Pending - Impressions ITS Impressions Elbow X-Ray 01/07/18 02:15 CONCLUSION: Negative examination Elbow CT 01/08/18 00:00 CONCLUSION: 1. Cellulitis with small abscess. 2. There is thrombosis of the cephalic vein. Venous Doppler Study 01/09/18 00:00 CONCLUSION: 1. Occlusive thrombus in portions of the proximal cephalic vein and mid basilic vein. 2. Palpable abnormality corresponds to a heterogeneous masslike area measuring up to 4.5 x 1.7 x 1.2 cm which is heterogeneous and has some internal color flow. Is nonspecific but could represent an abscess. 3. Second focal complex collection right antecubital fossa measuring up to 1.4 x 1.4 x 0.7 cm. This may represent an abscess as well. Chest X-Ray 01/09/18 11:38 CONCLUSION: Abdomen Ultrasound 01/10/18 00:00 CONCLUSION: 1. Enlarged liver. 2. Nonspecific wall thickening and surrounding fluid of the gallbladder. Cholecystitis or findings secondary to underlying liver disease or in the differential. Negative sonographic Willams's sign on today's study. Discharge Plan - Discharge Disposition Patient Disposition: 01 Discharge Home - Discharge Condition Condition: Stable - Discharge Order Discharge Orders: Discharge Order (Routine); Ordered 01/12/18 Ordered By: Coleman Harris - Discharge Details Anticipated Discharge Date: 01/12/18 - Physicians Team Primary Care Provider: Primary Care Maricel Garcia Attending Provider: Deanna De La Rosa Other Providers: Melyssa Chaudhry MD ; Libby Torres MD ; Ashanti Kirk MD
[2018-01-17 17:52] LABS: Hepatitis C RNA (PCR) log IUs 4.73
== END 2018-01-12 14:41 | disposition home or self-care (01) ==
LOC: PHED 23:42 → PHEDA 23:42 → PH3 01-07 05:40
PROVIDERS: ADMIT Hospitalist; ATTEND Hospitalist